=== PATIENT | male | born 1970 | race American Indian/Alaskan Native ===

== ENCOUNTER 2020-12-04 16:00 | Outpatient (RCR) | payer OTHER, SELFPAY ==
--- NOTE | 2020-09-11 18:01 | PT.OIE ---
Current Diagnoses Pain in right shoulder (09/11/20) Stiffness of right shoulder, not elsewhere classified (09/11/20) Abnormal posture (09/11/20) Weakness (09/11/20) Visit Care Team Role Provider Type Terrell Torres PA-C Family Provider Non-Staff Specialty: Medical Address: [address] [place], [address] Email: [email or web address] Capo Fragoso PA-C Attending Provider Non-Staff Primary Care Provider Referring Provider Specialty: Medical Address: [address] [place] [address], [id number] Email: Physical Therapy Initial Evaluation PT-OP-A Visit Information Start: 09/10/20 17:51 Freq: Status: Active Protocol: Document 09/11/20 15:53 [facility] (Rec: 09/11/20 16:49 [facility] [id number]) Out-Patient Physical Therapy Visit Information Visit Information Visit Type Initial Evaluation Visit Start Time 15:57 Visit Stop Time 17:00 Total Visit Minutes 63 Visit Number 1 Number of AUTOMATION AND CONTROL ENGINEER Visits 0 PT-OP-B Current Condition Start: 09/10/20 17:51 Freq: Status: Active Protocol: Document 09/11/20 15:53 [facility] (Rec: 09/11/20 16:49 [facility] [id number]) Current Condition History of Current Condition Onset Date 2 months ago Current Complaints R shoulder pain History of Current Condition Pt reports he working out and doing kettle villanueva squat lifts and started getting sharp pains after. After break, pain started. Pt notes he has started doing pullys and some stretches he found online including elastic bands but it is not helping. Pt reports he injured his R shoulder when doing self defense training but PT helped 4 years ago. Bumping into someone hurts him . Pt also does ab roller. Notes he did not do much stretching before lifting. Prior Treatments and Tests PT helped in past, estim and heat Treatment Goals Patient/Caregiver Goals get back to weight lifting without pain, be able to sleep on it and not lose sleep PT-OP-C Subjective Start: 09/10/20 17:51 Freq: Status: Active Protocol: Document 09/11/20 15:53 [facility] (Rec: 09/11/20 16:49 [facility] [id number]) OP-PT Pain Assessment Location R shoulder Pain Location Details ant lat shoulder and brachium Intensity 6 Scale Used Numeric (0 - 10) Description Tightness,With Movement Description- Other pinching Frequency Intermittent Other Pain Aggravating Factors laying on it,reaching overhead , bump into it, slat pickler at angle,reach behind Pain Alleviating Factors Exercise Other Pain Alleviating Factors stretching PT-OP-F Manual Assessment Start: 09/10/20 17:51 Freq: Status: Active Protocol: Document 09/11/20 15:53 [facility] (Rec: 09/11/20 16:49 [facility] [id number]) Manual Assessments Soft Tissue Assessment Soft Tissue Mobility Assessment R UT, pec, biceps tightness Joint Mobility Assessment Joint Mobility Assessment R 1st rib elevated PT-OP-J Posture/Palpation/Skin Start: 09/10/20 17:51 Freq: Status: Active Protocol: Document 09/11/20 15:53 [facility] (Rec: 09/11/20 16:49 [facility] [id number]) Posture Evaluation [facility] Postural Classification System [facility] Postural Classifications Posterior/Posterior Elbow Flexion Test 2 Comments Posture Comments humerus ant in GH joint, mild kyphosis & fwd head PT-OP-K Range of Motion Start: 09/10/20 17:51 Freq: Status: Active Protocol: Document 09/11/20 15:53 [facility] (Rec: 09/11/20 16:49 [facility] [id number]) Shoulder Goniometric Range of Motion Shoulder Left Active Flexion 160 Extension 64 Abduction 177 External Rotation at 0 degrees Abduction 54 Internal Rotation Behind Back (text) T5 Right Active Testing Position Standing Flexion 110 Extension 43 Abduction 101 External Rotation at 0 degrees Abduction 19 Internal Rotation Behind Back (text) R buttocks PT-OP-L Special Tests Start: 09/10/20 17:51 Freq: Status: Active Protocol: Document 09/11/20 15:53 [facility] (Rec: 09/11/20 16:49 [facility] [id number]) Special Tests Shoulder Special Tests Yergason's Biceps Test Results neg R Sulcus Test Results neg R Speed's Biceps Test Results positve R Burns Raffy Impingement Test Results positive R Drop Arm Rotator Cuff Test Results neg R Neer Impingement Test Results positive R [place] Test Test Results neg R AC Joint Compression Test Results neg R PT-OP-M Strength Start: 09/10/20 17:51 Freq: Status: Active Protocol: Document 09/11/20 15:53 [facility] (Rec: 09/11/20 16:49 [facility] [id number]) Shoulder Strength Shoulder Manual Muscle Testing Right Flexion 3+ Fair+ Extension 3+ Fair+ Abduction (C5) 2+ Poor+ External Rotation 3+ Fair+ Internal Rotation 4- Good- Left Flexion 5 Normal Extension 5 Normal Abduction (C5) 5 Normal External Rotation 5 Normal Internal Rotation 5 Normal PT-OP-Q Treatments Start: 09/10/20 17:51 Freq: Status: Active Protocol: Document 09/11/20 15:53 [facility] (Rec: 09/11/20 18:01 [facility] [id number]) Therapeutic Exercises Supine Exercises foam roll Supine Exercise Name habd Side bilateral Reps/Minutes 10 Sitting Exercises pully Sitting Exercise Name flex Side right Reps/Minutes 5 Comments focus on no elevation of scap Standing Exercises wall crawl Standing Exercise Name focus on no elevation of scap Side right Reps/Minutes 4 ext Side bilateral Equipment Used L1 Reps/Minutes 2x8 Comments focus on posture & scap movement IR Side right Equipment Used L3 Reps/Minutes 10 Comments focus on posture & scap movement ER Standing Exercise Name towel at elbow Side right Equipment Used L1 Reps/Minutes 10 Comments focus on posture & scap movement Self-Care/Home Management Treatment Education Other Education edu re: impingement & shoulder joint mechancis PT-OP-R Modalities Start: 09/10/20 17:51 Freq: Status: Active Protocol: Document 09/11/20 15:53 [facility] (Rec: 09/11/20 18:01 [facility] [id number]) Electric Stimulation Electric Stimulation Interferential Current (IFC) Body Location R shoulder Duration (Minutes) 15 Contraction Type Normal Patient Position Supine Combined With Heat/Cold Hot Pack PT-OP-T Assessment and Plan Start: 09/10/20 17:51 Freq: Status: Active Protocol: Document 09/11/20 15:53 [facility] (Rec: 09/11/20 16:49 [facility] [id number]) Physical Therapy Assessment Rehab Potential Rehabilitation Potential Good Evaluation Complexity Number of Personal Factors/Comorbidities 1-2 Number of Body Systems Impaired 4 or More Clinical Presentation at Evaluation Stable Impairments Impairments Activity Tolerance,Functional Activities,Functional Mobility ,Pain,Posture,ROM,Soft Tissue Mobility,Strength Goals activities Short Term Goal (STG) Pt will be able to sleep without inc pain. STG Duration 10/22/20 Printing Machine Mechanic Goal (LTG) Pt will be able to return to all weight lifting without inc pain. LTG Duration 11/11/20 strength Short Term Goal (STG) Pt will be indep with HEP STG Duration 10/11/20 Printing Machine Mechanic Goal (LTG) Pt will score 5/5 RUE strength and 5/5 EFT to show improved stability and allow him to do typical lifting activities without pain. LTG Duration 11/11/20 ROM Short Term Goal (STG) Pt will have active R flex and abd to 130 deg. STG Duration 10/11/20 Printing Machine Mechanic Goal (LTG) Pt will have full AROM in all planes for R shoulder to allow him to do all ADLs without inc pain. LTG Duration 11/11/20 Assessment Summary Assessment Pt presents with R shoulder pain consistant with impingement and demonstrates poor scapulohumeral and scapulothoracic mechanics, which likely have created this issue. he has dec R shoulder ROM, strength and impaired functional ability d/t pain and stiffness of joint. D/t postural positioning of humerus, pt likely has excessive pressure on ant joint capsule. Pt woudl benefit from skilled PT to address these mechanical impairments in order to improve pain and return function with neuromuscular facilitation & training of appropriate motor control patterns. Physical Therapy Plan Frequency and Duration Frequency of Treatment 1-2x/week Duration of Treatment 2 months Plan of Care Start Date 09/11/20 Plan of Care End Date 11/11/20 Therapeutic Interventions Therapeutic Interventions Aquatic Therapy,Home Exercise Program,Joint Mobilizations, Manual Therapy,Neuromuscular Re-education,Patient/Caregiver Education,Self-Care/Home Management,Soft Tissue Mobilization,Taping, Therapeutic Activities, Therapeutic Exercises Modalities Cold Pack/Ice Massage,Electric Stimulation,Hot Packs, Infrared Therapy,Iontophoresis ,Ultrasound Next Visit Focus/Plan Next Note Type Treatment Note Next Visit Plan review exercises, STM to pecs, biceps, UT, joint mobs to GH & AC joints
--- NOTE | 2020-09-11 18:01 | PT.OPPOC ---
Physical, Occupational & Speech Therapy At [facility] Current Diagnoses Pain in right shoulder (09/11/20) Stiffness of right shoulder, not elsewhere classified (09/11/20) Abnormal posture (09/11/20) Weakness (09/11/20) Visit Care Team Role Provider Type Terrell Torres PA-C Family Provider Non-Staff Specialty: Medical Address: [address] [place] [address], [id number] Email: [email or web address] Capo Fragoso PA-C Attending Provider Non-Staff Primary Care Provider Referring Provider Specialty: Medical Address: [address] [place] [address], [id number] Email: Plan Of Care PT-OP-T Assessment and Plan Start: 09/10/20 17:51 Freq: Status: Active Protocol: Document 09/11/20 15:53 [facility] (Rec: 09/11/20 16:49 [facility] [id number]) Physical Therapy Assessment Rehab Potential Rehabilitation Potential Good Evaluation Complexity Number of Personal Factors/Comorbidities 1-2 Number of Body Systems Impaired 4 or More Clinical Presentation at Evaluation Stable Impairments Impairments Activity Tolerance,Functional Activities,Functional Mobility ,Pain,Posture,ROM,Soft Tissue Mobility,Strength Goals activities Short Term Goal (STG) Pt will be able to sleep without inc pain. STG Duration 10/22/20 Hvac Mechanic Goal (LTG) Pt will be able to return to all weight lifting without inc pain. LTG Duration 11/11/20 strength Short Term Goal (STG) Pt will be indep with HEP STG Duration 10/11/20 Hvac Mechanic Goal (LTG) Pt will score 5/5 RUE strength and 5/5 EFT to show improved stability and allow him to do typical lifting activities without pain. LTG Duration 11/11/20 ROM Short Term Goal (STG) Pt will have active R flex and abd to 130 deg. STG Duration 10/11/20 Halfway Goal (LTG) Pt will have full AROM in all planes for R shoulder to allow him to do all ADLs without inc pain. LTG Duration 11/11/20 Assessment Summary Assessment Pt presents with R shoulder pain consistant with impingement and demonstrates poor scapulohumeral and scapulothoracic mechanics, which likely have created this issue. he has dec R shoulder ROM, strength and impaired functional ability d/t pain and stiffness of joint. D/t postural positioning of humerus, pt likely has excessive pressure on ant joint capsule. Pt woudl benefit from skilled PT to address these mechanical impairments in order to improve pain and return function with neuromuscular facilitation & training of appropriate motor control patterns. Physical Therapy Plan Frequency and Duration Frequency of Treatment 1-2x/week Duration of Treatment 2 months Plan of Care Start Date 09/11/20 Plan of Care End Date 11/11/20 Therapeutic Interventions Therapeutic Interventions Aquatic Therapy,Home Exercise Program,Joint Mobilizations, Manual Therapy,Neuromuscular Re-education,Patient/Caregiver Education,Self-Care/Home Management,Soft Tissue Mobilization,Taping, Therapeutic Activities, Therapeutic Exercises Modalities Cold Pack/Ice Massage,Electric Stimulation,Hot Packs, Infrared Therapy,Iontophoresis ,Ultrasound Next Visit Focus/Plan Next Note Type Treatment Note Next Visit Plan review exercises, STM to pecs, biceps, UT, joint mobs to GH & AC joints Plan of Care Dates Plan of Care Start Date 09/11/20 Plan of Care End Date 11/11/20 Electronically Signed by: Martha Parker, PT 09/11/20 0870 Please Sign and Return: I have reviewed this Plan of Care and certify that the skilled therapy services above are required to meet the patient?s needs. Physician Signature Date Printed Name and Credentials Clinical Instructor Signature Printed Name and Credentials
--- NOTE | 2020-09-18 18:05 | PT.OTN ---
Current Diagnoses Pain in right shoulder (09/18/20) Stiffness of right shoulder, not elsewhere classified (09/18/20) Abnormal posture (09/18/20) Weakness (09/18/20) Physical Therapy Treatment Note PT-OP-A Visit Information Start: 09/10/20 17:51 Freq: Status: Active Protocol: Document 09/18/20 18:02 [facility] (Rec: 09/18/20 18:05 [facility] [id number]) Out-Patient Physical Therapy Visit Information Visit Information Visit Type Treatment Note Visit Start Time 16:05 Visit Stop Time 17:00 Total Visit Minutes 55 Visit Number 2 Number of SCREEN PRINTER Visits 0 PT-OP-B Current Condition Start: 09/10/20 17:51 Freq: Status: Active Protocol: Document 09/11/20 15:53 [facility] (Rec: 09/11/20 16:49 [facility] [id number]) Current Condition History of Current Condition Onset Date 2 months ago Current Complaints R shoulder pain History of Current Condition Pt reports he working out and doing kettle villanueva squat lifts and started getting sharp pains after. After break, pain started. Pt notes he has started doing pullys and some stretches he found online including elastic bands but it is not helping. Pt reports he injured his R shoulder when doing self defense training but PT helped 4 years ago. Bumping into someone hurts him . Pt also does ab roller. Notes he did not do much stretching before lifting. Prior Treatments and Tests PT helped in past, estim and heat Treatment Goals Patient/Caregiver Goals get back to weight lifting without pain, be able to sleep on it and not lose sleep PT-OP-C Subjective Start: 09/10/20 17:51 Freq: Status: Active Protocol: Document 09/18/20 18:02 [facility] (Rec: 09/18/20 18:05 [facility] [id number]) OP-PT Subjective Patient Comments Patient Comments Pt reports compliance w/ exercises PT-OP-F Manual Assessment Start: 09/10/20 17:51 Freq: Status: Active Protocol: Document 09/11/20 15:53 [facility] (Rec: 09/11/20 16:49 [facility] [id number]) Manual Assessments Soft Tissue Assessment Soft Tissue Mobility Assessment R UT, pec, biceps tightness Joint Mobility Assessment Joint Mobility Assessment R 1st rib elevated PT-OP-J Posture/Palpation/Skin Start: 09/10/20 17:51 Freq: Status: Active Protocol: Document 09/11/20 15:53 [facility] (Rec: 09/11/20 16:49 [facility] [id number]) Posture Evaluation [facility] Postural Classification System [facility] Postural Classifications Posterior/Posterior Elbow Flexion Test 2 Comments Posture Comments humerus ant in GH joint, mild kyphosis & fwd head PT-OP-K Range of Motion Start: 09/10/20 17:51 Freq: Status: Active Protocol: Document 09/11/20 15:53 [facility] (Rec: 09/11/20 16:49 [facility] [id number]) Shoulder Goniometric Range of Motion Shoulder Left Active Flexion 160 Extension 64 Abduction 177 External Rotation at 0 degrees Abduction 54 Internal Rotation Behind Back (text) T5 Right Active Testing Position Standing Flexion 110 Extension 43 Abduction 101 External Rotation at 0 degrees Abduction 19 Internal Rotation Behind Back (text) R buttocks PT-OP-L Special Tests Start: 09/10/20 17:51 Freq: Status: Active Protocol: Document 09/11/20 15:53 [facility] (Rec: 09/11/20 16:49 [facility] [id number]) Special Tests Shoulder Special Tests Yergason's Biceps Test Results neg R Sulcus Test Results neg R Speed's Biceps Test Results positve R Burns Rfafy Impingement Test Results positive R Drop Arm Rotator Cuff Test Results neg R Neer Impingement Test Results positive R [place] Test Test Results neg R AC Joint Compression Test Results neg R PT-OP-M Strength Start: 09/10/20 17:51 Freq: Status: Active Protocol: Document 09/11/20 15:53 [facility] (Rec: 09/11/20 16:49 [facility] [id number]) Shoulder Strength Shoulder Manual Muscle Testing Right Flexion 3+ Fair+ Extension 3+ Fair+ Abduction (C5) 2+ Poor+ External Rotation 3+ Fair+ Internal Rotation 4- Good- Left Flexion 5 Normal Extension 5 Normal Abduction (C5) 5 Normal External Rotation 5 Normal Internal Rotation 5 Normal PT-OP-Q Treatments Start: 09/10/20 17:51 Freq: Status: Active Protocol: Document 09/18/20 18:02 [facility] (Rec: 09/18/20 18:05 [facility] [id number]) Manual Therapy Treatment Soft Tissue Mobilization subscap Body Location R Mobilization Type Sustained Pressure Intensity/Depth Moderate Body Position Supine pec Body Location R Mobilization Type Rolling,Strumming Intensity/Depth Moderate Body Position Supine Joint Mobilizations GH Joint r Direction post, inf & distraction & lat gapping FM SC Joint R Direction inf FM AC Joint R Direction gapping FM PT-OP-R Modalities Start: 09/10/20 17:51 Freq: Status: Active Protocol: Document 09/18/20 18:02 [facility] (Rec: 09/18/20 18:05 [facility] [id number]) Electric Stimulation Electric Stimulation Interferential Current (IFC) Body Location R shoulder Duration (Minutes) 15 Contraction Type Normal Patient Position Supine Combined With Heat/Cold Hot Pack PT-OP-T Assessment and Plan Start: 09/10/20 17:51 Freq: Status: Active Protocol: Document 09/18/20 18:02 [facility] (Rec: 09/18/20 18:05 [facility] [id number]) Physical Therapy Assessment Goals activities Short Term Goal (STG) Pt will be able to sleep without inc pain. STG Duration 10/22/20 Penitentiary Goal (LTG) Pt will be able to return to all weight lifting without inc pain. LTG Duration 11/11/20 strength Short Term Goal (STG) Pt will be indep with HEP STG Duration 10/11/20 Maintenance Shop Manager Goal (LTG) Pt will score 5/5 RUE strength and 5/5 EFT to show improved stability and allow him to do typical lifting activities without pain. LTG Duration 11/11/20 ROM Short Term Goal (STG) Pt will have active R flex and abd to 130 deg. STG Duration 10/11/20 Penitentiary Goal (LTG) Pt will have full AROM in all planes for R shoulder to allow him to do all ADLs without inc pain. LTG Duration 11/11/20 Assessment Summary Assessment Based on PROM today, it appears like pt may have symptoms associated with adhesive capsulitis. He had signfiicant lack of joint mobility into post, lat gapping and inf glides with some improvement with manual treatment. Signficiant pec, subscap and tightness surrounding shoulder likely contribute to this tightness. Physical Therapy Plan Frequency and Duration Frequency of Treatment 1-2x/week Duration of Treatment 2 months Plan of Care Start Date 09/11/20 Plan of Care End Date 11/11/20 Next Visit Focus/Plan Next Note Type Treatment Note Next Visit Plan review exercises, STM to pecs, biceps, UT, joint mobs to GH & AC joints
--- NOTE | 2020-09-20 16:25 | PT.OTN ---
Current Diagnoses Pain in right shoulder (09/20/20) Stiffness of right shoulder, not elsewhere classified (09/20/20) Abnormal posture (09/20/20) Weakness (09/20/20) Physical Therapy Treatment Note PT-OP-A Visit Information Start: 09/10/20 17:51 Freq: Status: Active Protocol: Document 09/20/20 15:21 MA (Rec: 09/20/20 16:25 MA [id number]) Out-Patient Physical Therapy Visit Information Visit Information Visit Type Treatment Note Visit Start Time 15:15 Visit Number 3 Number of NUMERICAL CONTROL NESTING OPERATOR Visits 1 PT-OP-B Current Condition Start: 09/10/20 17:51 Freq: Status: Active Protocol: Document 09/11/20 15:53 LR (Rec: 09/11/20 16:49 [facility] [id number]) Current Condition History of Current Condition Onset Date 2 months ago Current Complaints R shoulder pain History of Current Condition Pt reports he working out and doing kettle villanueva squat lifts and started getting sharp pains after. After break, pain started. Pt notes he has started doing pullys and some stretches he found online including elastic bands but it is not helping. Pt reports he injured his R shoulder when doing self defense training but PT helped 4 years ago. Bumping into someone hurts him . Pt also does ab roller. Notes he did not do much stretching before lifting. Prior Treatments and Tests PT helped in past, estim and heat Treatment Goals Patient/Caregiver Goals get back to weight lifting without pain, be able to sleep on it and not lose sleep PT-OP-C Subjective Start: 09/10/20 17:51 Freq: Status: Active Protocol: Document 09/20/20 15:21 MA (Rec: 09/20/20 16:25 MA [id number]) OP-PT Subjective Patient Comments Patient Comments Pt reports only time he has pain is when he rolls on his R side. Bought a NMES unit for home and pulleys for his doorway PT-OP-F Manual Assessment Start: 09/10/20 17:51 Freq: Status: Active Protocol: Document 09/11/20 15:53 [facility] (Rec: 09/11/20 16:49 [facility] [id number]) Manual Assessments Soft Tissue Assessment Soft Tissue Mobility Assessment R UT, pec, biceps tightness Joint Mobility Assessment Joint Mobility Assessment R 1st rib elevated PT-OP-J Posture/Palpation/Skin Start: 09/10/20 17:51 Freq: Status: Active Protocol: Document 09/11/20 15:53 [facility] (Rec: 09/11/20 16:49 [facility] [id number]) Posture Evaluation [facility] Postural Classification System [facility] Postural Classifications Posterior/Posterior Elbow Flexion Test 2 Comments Posture Comments humerus ant in GH joint, mild kyphosis & fwd head PT-OP-K Range of Motion Start: 09/10/20 17:51 Freq: Status: Active Protocol: Document 09/11/20 15:53 [facility] (Rec: 09/11/20 16:49 [facility] [id number]) Shoulder Goniometric Range of Motion Shoulder Left Active Flexion 160 Extension 64 Abduction 177 External Rotation at 0 degrees Abduction 54 Internal Rotation Behind Back (text) T5 Right Active Testing Position Standing Flexion 110 Extension 43 Abduction 101 External Rotation at 0 degrees Abduction 19 Internal Rotation Behind Back (text) R buttocks PT-OP-L Special Tests Start: 09/10/20 17:51 Freq: Status: Active Protocol: Document 09/11/20 15:53 [facility] (Rec: 09/11/20 16:49 [facility] [id number]) Special Tests Shoulder Special Tests Yergason's Biceps Test Results neg R Sulcus Test Results neg R Speed's Biceps Test Results positve R Burns Raffy Impingement Test Results positive R Drop Arm Rotator Cuff Test Results neg R Neer Impingement Test Results positive R Mckinley Test Test Results neg R AC Joint Compression Test Results neg R PT-OP-M Strength Start: 09/10/20 17:51 Freq: Status: Active Protocol: Document 09/11/20 15:53 [facility] (Rec: 09/11/20 16:49 [facility] [id number]) Shoulder Strength Shoulder Manual Muscle Testing Right Flexion 3+ Fair+ Extension 3+ Fair+ Abduction (C5) 2+ Poor+ External Rotation 3+ Fair+ Internal Rotation 4- Good- Left Flexion 5 Normal Extension 5 Normal Abduction (C5) 5 Normal External Rotation 5 Normal Internal Rotation 5 Normal PT-OP-Q Treatments Start: 09/10/20 17:51 Freq: Status: Active Protocol: Document 09/20/20 15:21 MA (Rec: 09/20/20 16:25 MA [id number]) Cardio Equipment Upper Body Ergometer (UBE) Duration (Minutes) 8 Seat Position 12 Height 3 Other 2 min forward/backward Therapeutic Exercises Supine Exercises foam roll Supine Exercise Name habd Side bilateral Reps/Minutes 10 Comments Single HAbd and double HAbd/ hug Sitting Exercises pully Sitting Exercise Name flex/Abd Side bilateral Reps/Minutes 5 Comments focus on no elevation of scap Standing Exercises Horizontal ABD Standing Exercise Name stretch Side right Reps/Minutes 2x60 sec Comments performed infront of mirror to avoid shd elevation ext Side bilateral Equipment Used L1 Reps/Minutes 2x12 Comments focus on posture & scap movement IR Side right Equipment Used L2 Reps/Minutes 10 Comments focus on posture & scap movement ER Standing Exercise Name towel at elbow Side right Equipment Used L1 Reps/Minutes 10 Comments focus on posture & scap movement Manual Therapy Treatment Soft Tissue Mobilization Supraspinatus Body Location R Shd Mobilization Type Myofascial Release,Sustained Pressure,Trigger Point Release Intensity/Depth Moderate Body Position Supine pec Body Location R Mobilization Type Rolling,Strumming Intensity/Depth Moderate Body Position Supine Joint Mobilizations GH Joint R Direction Inferior Grade II Body Position Sitting Reps/Duration 3 minutes Comments Active IR/ER PT-OP-R Modalities Start: 09/10/20 17:51 Freq: Status: Active Protocol: Document 09/20/20 15:21 MA (Rec: 09/20/20 16:25 MA [id number]) Electric Stimulation Electric Stimulation Interferential Current (IFC) Body Location R shoulder Duration (Minutes) 15 Intensity 9 Contraction Type Normal Patient Position Supine Combined With Heat/Cold Hot Pack PT-OP-T Assessment and Plan Start: 09/10/20 17:51 Freq: Status: Active Protocol: Document 09/20/20 15:21 MA (Rec: 09/20/20 16:25 MA [id number]) Physical Therapy Assessment Goals activities Short Term Goal (STG) Pt will be able to sleep without inc pain. STG Duration 10/22/20 Engineering Drawings Checker Goal (LTG) Pt will be able to return to all weight lifting without inc pain. LTG Duration 11/11/20 strength Short Term Goal (STG) Pt will be indep with HEP STG Duration 10/11/20 Fpc Goal (LTG) Pt will score 5/5 RUE strength and 5/5 EFT to show improved stability and allow him to do typical lifting activities without pain. LTG Duration 11/11/20 ROM Short Term Goal (STG) Pt will have active R flex and abd to 130 deg. STG Duration 10/11/20 Fpc Goal (LTG) Pt will have full AROM in all planes for R shoulder to allow him to do all ADLs without inc pain. LTG Duration 11/11/20 Assessment Summary Assessment Pt continues to have decreased R shd ROM during flex/ABD/ER. STM to pecs and supraspinatus due to sore spot complaints . Pt is doing HEP at home-has bought pulleys, foam roller and TENS unit for home. Pt needs cues to avoid shd elevation throughout exercises . Had pt perform some stretches/exercises in mirror for proper form. Physical Therapy Plan Frequency and Duration Frequency of Treatment 1-2x/week Duration of Treatment 2 months Plan of Care Start Date 09/11/20 Plan of Care End Date 11/11/20 Therapeutic Interventions Therapeutic Interventions Aquatic Therapy,Home Exercise Program,Joint Mobilizations, Manual Therapy,Neuromuscular Re-education,Patient/Caregiver Education,Self-Care/Home Management,Soft Tissue Mobilization,Taping, Therapeutic Activities, Therapeutic Exercises Modalities Cold Pack/Ice Massage,Electric Stimulation,Hot Packs, Infrared Therapy,Iontophoresis ,Ultrasound Next Visit Focus/Plan Next Note Type Treatment Note Next Visit Plan review exercises & foam roller stretches, STM to pecs, biceps, UT, joint mobs to GH & AC joints
--- NOTE | 2020-09-24 15:20 | PT.OTN ---
Current Diagnoses Pain in right shoulder (09/24/20) Stiffness of right shoulder, not elsewhere classified (09/24/20) Abnormal posture (09/24/20) Weakness (09/24/20) Physical Therapy Treatment Note PT-OP-A Visit Information Start: 09/10/20 17:51 Freq: Status: Active Protocol: Document 09/24/20 13:49 [facility] (Rec: 09/24/20 15:20 [facility] [id number]) Out-Patient Physical Therapy Visit Information Visit Information Visit Type Treatment Note Visit Start Time 13:49 Visit Stop Time 14:45 Total Visit Minutes 56 Visit Number 4 Number of NEWS EDITOR Visits 0 PT-OP-B Current Condition Start: 09/10/20 17:51 Freq: Status: Active Protocol: Document 09/11/20 15:53 [facility] (Rec: 09/11/20 16:49 [facility] [id number]) Current Condition History of Current Condition Onset Date 2 months ago Current Complaints R shoulder pain History of Current Condition Pt reports he working out and doing kettle villanueva squat lifts and started getting sharp pains after. After break, pain started. Pt notes he has started doing pullys and some stretches he found online including elastic bands but it is not helping. Pt reports he injured his R shoulder when doing self defense training but PT helped 4 years ago. Bumping into someone hurts him . Pt also does ab roller. Notes he did not do much stretching before lifting. Prior Treatments and Tests PT helped in past, estim and heat Treatment Goals Patient/Caregiver Goals get back to weight lifting without pain, be able to sleep on it and not lose sleep PT-OP-C Subjective Start: 09/10/20 17:51 Freq: Status: Active Protocol: Document 09/24/20 13:49 [facility] (Rec: 09/24/20 15:20 [facility] [id number]) OP-PT Subjective Patient Comments Patient Comments Pt reports he accidently banged his shoulder real hard but didn't have a lot of pain like before. Compliance with HEP. Reports find a hot pack wrap at home to use too Patient Reported Progress Improving PT-OP-F Manual Assessment Start: 09/10/20 17:51 Freq: Status: Active Protocol: Document 09/11/20 15:53 [facility] (Rec: 09/11/20 16:49 [facility] [id number]) Manual Assessments Soft Tissue Assessment Soft Tissue Mobility Assessment R UT, pec, biceps tightness Joint Mobility Assessment Joint Mobility Assessment R 1st rib elevated PT-OP-J Posture/Palpation/Skin Start: 09/10/20 17:51 Freq: Status: Active Protocol: Document 09/11/20 15:53 [facility] (Rec: 09/11/20 16:49 [facility] [id number]) Posture Evaluation [facility] Postural Classification System [facility] Postural Classifications Posterior/Posterior Elbow Flexion Test 2 Comments Posture Comments humerus ant in GH joint, mild kyphosis & fwd head PT-OP-K Range of Motion Start: 09/10/20 17:51 Freq: Status: Active Protocol: Document 09/11/20 15:53 [facility] (Rec: 09/11/20 16:49 [facility] [id number]) Shoulder Goniometric Range of Motion Shoulder Left Active Flexion 160 Extension 64 Abduction 177 External Rotation at 0 degrees Abduction 54 Internal Rotation Behind Back (text) T5 Right Active Testing Position Standing Flexion 110 Extension 43 Abduction 101 External Rotation at 0 degrees Abduction 19 Internal Rotation Behind Back (text) R buttocks PT-OP-L Special Tests Start: 09/10/20 17:51 Freq: Status: Active Protocol: Document 09/11/20 15:53 [facility] (Rec: 09/11/20 16:49 [facility] [id number]) Special Tests Shoulder Special Tests Yergason's Biceps Test Results neg R Sulcus Test Results neg R Speed's Biceps Test Results positve R Burns Raffy Impingement Test Results positive R Drop Arm Rotator Cuff Test Results neg R Neer Impingement Test Results positive R [place] Test Test Results neg R AC Joint Compression Test Results neg R PT-OP-M Strength Start: 09/10/20 17:51 Freq: Status: Active Protocol: Document 09/11/20 15:53 [facility] (Rec: 09/11/20 16:49 [facility] [id number]) Shoulder Strength Shoulder Manual Muscle Testing Right Flexion 3+ Fair+ Extension 3+ Fair+ Abduction (C5) 2+ Poor+ External Rotation 3+ Fair+ Internal Rotation 4- Good- Left Flexion 5 Normal Extension 5 Normal Abduction (C5) 5 Normal External Rotation 5 Normal Internal Rotation 5 Normal PT-OP-Q Treatments Start: 09/10/20 17:51 Freq: Status: Active Protocol: Document 09/24/20 13:49 [facility] (Rec: 09/24/20 15:20 [facility] [id number]) Cardio Equipment Upper Body Ergometer (UBE) Duration (Minutes) 8 Seat Position 12 Height 5 Other 4 min forward/backward Therapeutic Exercises Supine Exercises foam roll Supine Exercise Name habd &flex & abd Side bilateral Reps/Minutes 5min Sidelying Exercises rotation Sidelying Exercise Name open book Side right Reps/Minutes 10 Standing Exercises Horizontal ABD Standing Exercise Name stretch Side right Reps/Minutes 60 sec Comments performed infront of mirror to avoid shd elevation ext Side bilateral Equipment Used L3 Reps/Minutes 2x12 Comments focus on posture & scap movement IR Side right Equipment Used L2 Reps/Minutes 15 Comments focus on posture & scap movement ER Standing Exercise Name towel at elbow Side right Equipment Used L1 Reps/Minutes 15 Comments focus on posture & scap movement Manual Therapy Treatment Soft Tissue Mobilization UT Body Location R UT, LS, scalenes Mobilization Type Rolling,Sustained Pressure Comments w/post dep pec Body Location R Mobilization Type Rolling,Strumming Intensity/Depth Moderate Body Position Supine Joint Mobilizations AC Joint R Direction gapping FM PT-OP-R Modalities Start: 09/10/20 17:51 Freq: Status: Active Protocol: Document 09/24/20 13:49 [facility] (Rec: 09/24/20 15:20 [facility] [id number]) Electric Stimulation Electric Stimulation Interferential Current (IFC) Body Location R shoulder Duration (Minutes) 15 Contraction Type Normal Patient Position Supine Combined With Heat/Cold Hot Pack PT-OP-T Assessment and Plan Start: 09/10/20 17:51 Freq: Status: Active Protocol: Document 09/24/20 13:49 [facility] (Rec: 09/24/20 15:20 [facility] [id number]) Physical Therapy Assessment Goals activities Short Term Goal (STG) Pt will be able to sleep without inc pain. STG Duration 10/22/20 Manager Environmental Health And Safety Goal (LTG) Pt will be able to return to all weight lifting without inc pain. LTG Duration 11/11/20 strength Short Term Goal (STG) Pt will be indep with HEP STG Duration 10/11/20 Manager Environmental Health And Safety Goal (LTG) Pt will score 5/5 RUE strength and 5/5 EFT to show improved stability and allow him to do typical lifting activities without pain. LTG Duration 11/11/20 ROM Short Term Goal (STG) Pt will have active R flex and abd to 130 deg. STG Duration 10/11/20 [facility] Goal (LTG) Pt will have full AROM in all planes for R shoulder to allow him to do all ADLs without inc pain. LTG Duration 11/11/20 Assessment Summary Assessment Pt did better with exercises today but still did require cuieng for scap retraction and posture during exercises. Able to add further stretching on foam roll and pt educated for comfortable range. Improved scap depression after manual treatment Physical Therapy Plan Frequency and Duration Frequency of Treatment 1-2x/week Duration of Treatment 2 months Plan of Care Start Date 09/11/20 Plan of Care End Date 11/11/20 Next Visit Focus/Plan Next Note Type Treatment Note Next Visit Plan joint mobs and cont to work on scap stability & mobility
--- NOTE | 2020-09-26 15:20 | PT.OTN ---
Current Diagnoses Pain in right shoulder (09/26/20) Stiffness of right shoulder, not elsewhere classified (09/26/20) Abnormal posture (09/26/20) Weakness (09/26/20) Physical Therapy Treatment Note PT-OP-A Visit Information Start: 09/10/20 17:51 Freq: Status: Active Protocol: Document 09/26/20 13:42 [facility] (Rec: 09/26/20 15:20 [facility] [id number]) Out-Patient Physical Therapy Visit Information Visit Information Visit Type Treatment Note Visit Start Time 13:47 Visit Stop Time 14:42 Total Visit Minutes 55 Visit Number 5 Number of FACT CHECKER Visits 0 PT-OP-B Current Condition Start: 09/10/20 17:51 Freq: Status: Active Protocol: Document 09/11/20 15:53 [facility] (Rec: 09/11/20 16:49 [facility] [id number]) Current Condition History of Current Condition Onset Date 2 months ago Current Complaints R shoulder pain History of Current Condition Pt reports he working out and doing kettle villanueva squat lifts and started getting sharp pains after. After break, pain started. Pt notes he has started doing pullys and some stretches he found online including elastic bands but it is not helping. Pt reports he injured his R shoulder when doing self defense training but PT helped 4 years ago. Bumping into someone hurts him . Pt also does ab roller. Notes he did not do much stretching before lifting. Prior Treatments and Tests PT helped in past, estim and heat Treatment Goals Patient/Caregiver Goals get back to weight lifting without pain, be able to sleep on it and not lose sleep PT-OP-C Subjective Start: 09/10/20 17:51 Freq: Status: Active Protocol: Document 09/26/20 13:42 [facility] (Rec: 09/26/20 15:20 [facility] [id number]) OP-PT Subjective Patient Comments Patient Comments Pt reprots some soreness after last session through yesterday but better today. He did his HEP yesterdaya nd stretched PT-OP-F Manual Assessment Start: 09/10/20 17:51 Freq: Status: Active Protocol: Document 09/11/20 15:53 [facility] (Rec: 09/11/20 16:49 [facility] [id number]) Manual Assessments Soft Tissue Assessment Soft Tissue Mobility Assessment R UT, pec, biceps tightness Joint Mobility Assessment Joint Mobility Assessment R 1st rib elevated PT-OP-J Posture/Palpation/Skin Start: 09/10/20 17:51 Freq: Status: Active Protocol: Document 09/11/20 15:53 [facility] (Rec: 09/11/20 16:49 [facility] [id number]) Posture Evaluation [facility] Postural Classification System [facility] Postural Classifications Posterior/Posterior Elbow Flexion Test 2 Comments Posture Comments humerus ant in GH joint, mild kyphosis & fwd head PT-OP-K Range of Motion Start: 09/10/20 17:51 Freq: Status: Active Protocol: Document 09/11/20 15:53 [facility] (Rec: 09/11/20 16:49 [facility] [id number]) Shoulder Goniometric Range of Motion Shoulder Left Active Flexion 160 Extension 64 Abduction 177 External Rotation at 0 degrees Abduction 54 Internal Rotation Behind Back (text) T5 Right Active Testing Position Standing Flexion 110 Extension 43 Abduction 101 External Rotation at 0 degrees Abduction 19 Internal Rotation Behind Back (text) R buttocks PT-OP-L Special Tests Start: 09/10/20 17:51 Freq: Status: Active Protocol: Document 09/11/20 15:53 [facility] (Rec: 09/11/20 16:49 [facility] [id number]) Special Tests Shoulder Special Tests Yergason's Biceps Test Results neg R Sulcus Test Results neg R Speed's Biceps Test Results positve R Burns Raffy Impingement Test Results positive R Drop Arm Rotator Cuff Test Results neg R Neer Impingement Test Results positive R [place] Test Test Results neg R AC Joint Compression Test Results neg R PT-OP-M Strength Start: 09/10/20 17:51 Freq: Status: Active Protocol: Document 09/11/20 15:53 [facility] (Rec: 09/11/20 16:49 [facility] [id number]) Shoulder Strength Shoulder Manual Muscle Testing Right Flexion 3+ Fair+ Extension 3+ Fair+ Abduction (C5) 2+ Poor+ External Rotation 3+ Fair+ Internal Rotation 4- Good- Left Flexion 5 Normal Extension 5 Normal Abduction (C5) 5 Normal External Rotation 5 Normal Internal Rotation 5 Normal PT-OP-Q Treatments Start: 09/10/20 17:51 Freq: Status: Active Protocol: Document 09/26/20 13:42 [facility] (Rec: 09/26/20 15:20 [facility] [id number]) Cardio Equipment Upper Body Ergometer (UBE) Duration (Minutes) 8 Seat Position 12 Height 5 Other 4 min forward/backward Therapeutic Exercises Standing Exercises ext Side bilateral Equipment Used L3 Reps/Minutes 2x12 Comments focus on posture & scap movement IR Side right Equipment Used L2 Reps/Minutes 15 Comments focus on posture & scap movement ER Standing Exercise Name towel at elbow Side right Equipment Used L1 Reps/Minutes 15 Comments focus on posture & scap movement Manual Therapy Treatment Soft Tissue Mobilization lats Body Location R Mobilization Type Myofascial Release,Rolling, Strumming Comments use of plunger & hand UT Body Location R UT, LS, scalenes Mobilization Type Rolling,Sustained Pressure Comments w/post dep Supraspinatus Body Location R Shd Mobilization Type Myofascial Release,Sustained Pressure,Trigger Point Release Intensity/Depth Moderate Body Position Supine subscap Body Location R Mobilization Type Sustained Pressure Intensity/Depth Moderate Body Position Supine pec Body Location R Mobilization Type Rolling,Strumming Intensity/Depth Moderate Body Position Supine Joint Mobilizations scapulothoracic Joint R Direction med glide & tilt & lat glide & tilt GH Joint R Direction distraction Grade III SC Joint R Direction inf FM PT-OP-R Modalities Start: 09/10/20 17:51 Freq: Status: Active Protocol: Document 09/26/20 13:42 [facility] (Rec: 09/26/20 15:20 [facility] [id number]) Electric Stimulation Electric Stimulation Interferential Current (IFC) Body Location R shoulder Duration (Minutes) 15 Contraction Type Normal Patient Position Supine Combined With Heat/Cold Hot Pack PT-OP-T Assessment and Plan Start: 09/10/20 17:51 Freq: Status: Active Protocol: Document 09/26/20 13:42 [facility] (Rec: 09/26/20 15:20 [facility] [id number]) Physical Therapy Assessment Goals activities Short Term Goal (STG) Pt will be able to sleep without inc pain. STG Duration 10/22/20 Db2 Systems Programmer Goal (LTG) Pt will be able to return to all weight lifting without inc pain. LTG Duration 11/11/20 strength Short Term Goal (STG) Pt will be indep with HEP STG Duration 10/11/20 Db2 Systems Programmer Goal (LTG) Pt will score 5/5 RUE strength and 5/5 EFT to show improved stability and allow him to do typical lifting activities without pain. LTG Duration 11/11/20 ROM Short Term Goal (STG) Pt will have active R flex and abd to 130 deg. STG Duration 10/11/20 [facility] Goal (LTG) Pt will have full AROM in all planes for R shoulder to allow him to do all ADLs without inc pain. LTG Duration 11/11/20 Assessment Summary Assessment Pt is doing well with exercises but does still require cueing for scap motion with ext and IR. Improving overhead mobility with mobs and soft tissue but very signficant testing Physical Therapy Plan Frequency and Duration Frequency of Treatment 1-2x/week Duration of Treatment 2 months Plan of Care Start Date 09/11/20 Plan of Care End Date 11/11/20 Next Visit Focus/Plan Next Note Type Treatment Note Next Visit Plan joint mobs and cont to work on scap stability & mobility
--- NOTE | 2020-09-30 14:35 | PT.OTN ---
Current Diagnoses Pain in right shoulder (09/30/20) Stiffness of right shoulder, not elsewhere classified (09/30/20) Abnormal posture (09/30/20) Weakness (09/30/20) Physical Therapy Treatment Note PT-OP-A Visit Information Start: 09/10/20 17:51 Freq: Status: Active Protocol: Document 09/30/20 13:46 MA (Rec: 09/30/20 14:34 MA [id number]) Out-Patient Physical Therapy Visit Information Visit Information Visit Type Treatment Note Visit Start Time 13:44 Visit Stop Time 14:28 Total Visit Minutes 44 Visit Number 6 Number of CITY MANAGER Visits 1 PT-OP-B Current Condition Start: 09/10/20 17:51 Freq: Status: Active Protocol: Document 09/11/20 15:53 LR (Rec: 09/11/20 16:49 [facility] [id number]) Current Condition History of Current Condition Onset Date 2 months ago Current Complaints R shoulder pain History of Current Condition Pt reports he working out and doing kettle villanueva squat lifts and started getting sharp pains after. After break, pain started. Pt notes he has started doing pullys and some stretches he found online including elastic bands but it is not helping. Pt reports he injured his R shoulder when doing self defense training but PT helped 4 years ago. Bumping into someone hurts him . Pt also does ab roller. Notes he did not do much stretching before lifting. Prior Treatments and Tests PT helped in past, estim and heat Treatment Goals Patient/Caregiver Goals get back to weight lifting without pain, be able to sleep on it and not lose sleep PT-OP-C Subjective Start: 09/10/20 17:51 Freq: Status: Active Protocol: Document 09/30/20 13:46 MA (Rec: 09/30/20 14:34 MA [id number]) OP-PT Subjective Patient Comments Patient Comments Pt reports he has had no pain and has only been doing his HEP exercises/stretches, no weight lifting yet PT-OP-F Manual Assessment Start: 09/10/20 17:51 Freq: Status: Active Protocol: Document 09/11/20 15:53 LR (Rec: 09/11/20 16:49 [facility] [id number]) Manual Assessments Soft Tissue Assessment Soft Tissue Mobility Assessment R UT, pec, biceps tightness Joint Mobility Assessment Joint Mobility Assessment R 1st rib elevated PT-OP-J Posture/Palpation/Skin Start: 09/10/20 17:51 Freq: Status: Active Protocol: Document 09/11/20 15:53 [facility] (Rec: 09/11/20 16:49 [facility] [id number]) Posture Evaluation [facility] Postural Classification System [facility] Postural Classifications Posterior/Posterior Elbow Flexion Test 2 Comments Posture Comments humerus ant in GH joint, mild kyphosis & fwd head PT-OP-K Range of Motion Start: 09/10/20 17:51 Freq: Status: Active Protocol: Document 09/11/20 15:53 [facility] (Rec: 09/11/20 16:49 [facility] [id number]) Shoulder Goniometric Range of Motion Shoulder Left Active Flexion 160 Extension 64 Abduction 177 External Rotation at 0 degrees Abduction 54 Internal Rotation Behind Back (text) T5 Right Active Testing Position Standing Flexion 110 Extension 43 Abduction 101 External Rotation at 0 degrees Abduction 19 Internal Rotation Behind Back (text) R buttocks PT-OP-L Special Tests Start: 09/10/20 17:51 Freq: Status: Active Protocol: Document 09/11/20 15:53 [facility] (Rec: 09/11/20 16:49 [facility] [id number]) Special Tests Shoulder Special Tests Yergason's Biceps Test Results neg R Sulcus Test Results neg R Speed's Biceps Test Results positve R Burns Raffy Impingement Test Results positive R Drop Arm Rotator Cuff Test Results neg R Neer Impingement Test Results positive R [place] Test Test Results neg R AC Joint Compression Test Results neg R PT-OP-M Strength Start: 09/10/20 17:51 Freq: Status: Active Protocol: Document 09/11/20 15:53 [facility] (Rec: 09/11/20 16:49 [facility] [id number]) Shoulder Strength Shoulder Manual Muscle Testing Right Flexion 3+ Fair+ Extension 3+ Fair+ Abduction (C5) 2+ Poor+ External Rotation 3+ Fair+ Internal Rotation 4- Good- Left Flexion 5 Normal Extension 5 Normal Abduction (C5) 5 Normal External Rotation 5 Normal Internal Rotation 5 Normal PT-OP-Q Treatments Start: 09/10/20 17:51 Freq: Status: Active Protocol: Document 09/30/20 13:46 MA (Rec: 09/30/20 14:34 MA [id number]) Cardio Equipment Upper Body Ergometer (UBE) Duration (Minutes) 6 Seat Position 11 Height 5 Other 3 min forward/backward Therapeutic Exercises Sitting Exercises UT stretch Side right Reps/Minutes 30 sec pully Sitting Exercise Name Flex Side bilateral Reps/Minutes 2 minutes Comments Isaac snapped during exercise Standing Exercises Pec Stretch Side bilateral Equipment Used doorway Comments pt only able to feel stretch on L side, R side felt stretch in RC mms ext Side bilateral Equipment Used L3 Reps/Minutes 2x12 Comments focus on posture & scap movement IR Side right Equipment Used L2 Reps/Minutes 2x15 Comments focus on posture & scap movement ER Standing Exercise Name towel at elbow Side right Equipment Used L1 Reps/Minutes 2x15 Comments focus on posture & scap movement Manual Therapy Treatment Soft Tissue Mobilization UT Body Location R UT, LS, scalenes Mobilization Type Rolling,Sustained Pressure Comments w/post dep Supraspinatus Body Location R Shd Mobilization Type Myofascial Release,Sustained Pressure,Trigger Point Release Intensity/Depth Moderate Body Position Supine subscap Body Location R Mobilization Type Sustained Pressure Intensity/Depth Moderate Body Position Supine pec Body Location R Mobilization Type Rolling,Strumming Intensity/Depth Moderate Body Position Supine PT-OP-R Modalities Start: 09/10/20 17:51 Freq: Status: Active Protocol: Document 09/26/20 13:42 [facility] (Rec: 09/26/20 15:20 [facility] [id number]) Electric Stimulation Electric Stimulation Interferential Current (IFC) Body Location R shoulder Duration (Minutes) 15 Contraction Type Normal Patient Position Supine Combined With Heat/Cold Hot Pack PT-OP-T Assessment and Plan Start: 09/10/20 17:51 Freq: Status: Active Protocol: Document 09/30/20 13:46 MA (Rec: 09/30/20 14:34 MA [id number]) Physical Therapy Assessment Goals activities Short Term Goal (STG) Pt will be able to sleep without inc pain. STG Duration 10/22/20 Usp Goal (LTG) Pt will be able to return to all weight lifting without inc pain. LTG Duration 11/11/20 strength Short Term Goal (STG) Pt will be indep with HEP STG Duration 10/11/20 Assistant Boiler Operator Goal (LTG) Pt will score 5/5 RUE strength and 5/5 EFT to show improved stability and allow him to do typical lifting activities without pain. LTG Duration 11/11/20 ROM Short Term Goal (STG) Pt will have active R flex and abd to 130 deg. STG Duration 10/11/20 Assistant Boiler Operator Goal (LTG) Pt will have full AROM in all planes for R shoulder to allow him to do all ADLs without inc pain. LTG Duration 11/11/20 Assessment Summary Assessment Pt is doing better with exercises but requires cues on shd extension to avoid scap elevation. Pt is tender on deltoid mm today and along R pec. Increased ROM during isaac flexion until pully rope snapped and exercise was discontinued Physical Therapy Plan Frequency and Duration Frequency of Treatment 1-2x/week Duration of Treatment 2 months Plan of Care Start Date 09/11/20 Plan of Care End Date 11/11/20 Next Visit Focus/Plan Next Note Type Treatment Note Next Visit Plan joint mobs and cont to work on scap stability & mobility
--- NOTE | 2020-10-02 18:08 | PT.OTN ---
Current Diagnoses Pain in right shoulder (10/02/20) Stiffness of right shoulder, not elsewhere classified (10/02/20) Abnormal posture (10/02/20) Weakness (10/02/20) Physical Therapy Treatment Note PT-OP-A Visit Information Start: 09/10/20 17:51 Freq: Status: Active Protocol: Document 10/02/20 16:56 [facility] (Rec: 10/02/20 18:08 [facility] [id number]) Out-Patient Physical Therapy Visit Information Visit Information Visit Type Treatment Note Visit Start Time 16:51 Visit Stop Time 17:48 Total Visit Minutes 57 Visit Number 7 Number of ASW/ASUW TACTICAL AIR CONTROLLER Visits 0 PT-OP-B Current Condition Start: 09/10/20 17:51 Freq: Status: Active Protocol: Document 09/11/20 15:53 [facility] (Rec: 09/11/20 16:49 [facility] [id number]) Current Condition History of Current Condition Onset Date 2 months ago Current Complaints R shoulder pain History of Current Condition Pt reports he working out and doing kettle villanueva squat lifts and started getting sharp pains after. After break, pain started. Pt notes he has started doing pullys and some stretches he found online including elastic bands but it is not helping. Pt reports he injured his R shoulder when doing self defense training but PT helped 4 years ago. Bumping into someone hurts him . Pt also does ab roller. Notes he did not do much stretching before lifting. Prior Treatments and Tests PT helped in past, estim and heat Treatment Goals Patient/Caregiver Goals get back to weight lifting without pain, be able to sleep on it and not lose sleep PT-OP-C Subjective Start: 09/10/20 17:51 Freq: Status: Active Protocol: Document 10/02/20 16:56 [facility] (Rec: 10/02/20 18:08 [facility] [id number]) OP-PT Subjective Patient Comments Patient Comments Pt doing exercises daily and doing a lot of stretching including w/foam roller. Patient Reported Progress Improving PT-OP-F Manual Assessment Start: 09/10/20 17:51 Freq: Status: Active Protocol: Document 09/11/20 15:53 [facility] (Rec: 09/11/20 16:49 [facility] [id number]) Manual Assessments Soft Tissue Assessment Soft Tissue Mobility Assessment R UT, pec, biceps tightness Joint Mobility Assessment Joint Mobility Assessment R 1st rib elevated PT-OP-J Posture/Palpation/Skin Start: 09/10/20 17:51 Freq: Status: Active Protocol: Document 09/11/20 15:53 [facility] (Rec: 09/11/20 16:49 [facility] [id number]) Posture Evaluation [facility] Postural Classification System [facility] Postural Classifications Posterior/Posterior Elbow Flexion Test 2 Comments Posture Comments humerus ant in GH joint, mild kyphosis & fwd head PT-OP-K Range of Motion Start: 09/10/20 17:51 Freq: Status: Active Protocol: Document 09/11/20 15:53 [facility] (Rec: 09/11/20 16:49 [facility] [id number]) Shoulder Goniometric Range of Motion Shoulder Left Active Flexion 160 Extension 64 Abduction 177 External Rotation at 0 degrees Abduction 54 Internal Rotation Behind Back (text) T5 Right Active Testing Position Standing Flexion 110 Extension 43 Abduction 101 External Rotation at 0 degrees Abduction 19 Internal Rotation Behind Back (text) R buttocks PT-OP-L Special Tests Start: 09/10/20 17:51 Freq: Status: Active Protocol: Document 09/11/20 15:53 [facility] (Rec: 09/11/20 16:49 [facility] [id number]) Special Tests Shoulder Special Tests Yergason's Biceps Test Results neg R Sulcus Test Results neg R Speed's Biceps Test Results positve R Burns Raffy Impingement Test Results positive R Drop Arm Rotator Cuff Test Results neg R Neer Impingement Test Results positive R [place] Test Test Results neg R AC Joint Compression Test Results neg R PT-OP-M Strength Start: 09/10/20 17:51 Freq: Status: Active Protocol: Document 09/11/20 15:53 [facility] (Rec: 09/11/20 16:49 [facility] [id number]) Shoulder Strength Shoulder Manual Muscle Testing Right Flexion 3+ Fair+ Extension 3+ Fair+ Abduction (C5) 2+ Poor+ External Rotation 3+ Fair+ Internal Rotation 4- Good- Left Flexion 5 Normal Extension 5 Normal Abduction (C5) 5 Normal External Rotation 5 Normal Internal Rotation 5 Normal PT-OP-Q Treatments Start: 09/10/20 17:51 Freq: Status: Active Protocol: Document 10/02/20 16:56 [facility] (Rec: 10/02/20 18:08 [facility] [id number]) Cardio Equipment Upper Body Ergometer (UBE) Duration (Minutes) 6 Seat Position 11 Height 5.5 Other 3 min forward/backward Therapeutic Exercises Standing Exercises ext Side bilateral Equipment Used L3 Reps/Minutes 12 Comments focus on posture & scap movement IR Side right Equipment Used L2 Reps/Minutes 15 Comments focus on posture & scap movement ER Standing Exercise Name towel at elbow Side right Equipment Used L1 Reps/Minutes 15 Comments focus on posture & scap movement Manual Therapy Treatment Soft Tissue Mobilization UT Body Location R UT, LS, scalenes Mobilization Type Rolling,Sustained Pressure Comments w/post dep pec Body Location R Mobilization Type Rolling,Strumming Intensity/Depth Moderate Body Position Supine Joint Mobilizations scapulothoracic Joint R Direction med glide & tilt & lat glide & tilt GH Joint R Direction distraction, inf & post glides Grade III PT-OP-R Modalities Start: 09/10/20 17:51 Freq: Status: Active Protocol: Document 10/02/20 16:56 [facility] (Rec: 10/02/20 18:08 [facility] [id number]) Electric Stimulation Electric Stimulation Interferential Current (IFC) Body Location R shoulder Duration (Minutes) 15 Contraction Type Normal Patient Position Supine Combined With Heat/Cold Hot Pack PT-OP-T Assessment and Plan Start: 09/10/20 17:51 Freq: Status: Active Protocol: Document 10/02/20 16:56 [facility] (Rec: 10/02/20 18:08 [facility] [id number]) Physical Therapy Assessment Goals activities Short Term Goal (STG) Pt will be able to sleep without inc pain. STG Duration 10/22/20 It Help Desk Analyst Goal (LTG) Pt will be able to return to all weight lifting without inc pain. LTG Duration 11/11/20 strength Short Term Goal (STG) Pt will be indep with HEP STG Duration 10/11/20 It Help Desk Analyst Goal (LTG) Pt will score 5/5 RUE strength and 5/5 EFT to show improved stability and allow him to do typical lifting activities without pain. LTG Duration 11/11/20 ROM Short Term Goal (STG) Pt will have active R flex and abd to 130 deg. STG Duration 10/11/20 Half-Way Goal (LTG) Pt will have full AROM in all planes for R shoulder to allow him to do all ADLs without inc pain. LTG Duration 11/11/20 Assessment Summary Assessment Pt required min cueing for scap motion with IR and was able to do ER with good form but does still require max cueing with shoulder ext to avoid scap elevation. Physical Therapy Plan Frequency and Duration Frequency of Treatment 1-2x/week Duration of Treatment 2 months Plan of Care Start Date 09/11/20 Plan of Care End Date 11/11/20 Next Visit Focus/Plan Next Note Type Treatment Note Next Visit Plan joint mobs and cont to work on scap stability & mobility
--- NOTE | 2020-10-08 15:18 | PT.OTN ---
Current Diagnoses Pain in right shoulder (10/08/20) Stiffness of right shoulder, not elsewhere classified (10/08/20) Abnormal posture (10/08/20) Weakness (10/08/20) Physical Therapy Treatment Note PT-OP-A Visit Information Start: 09/10/20 17:51 Freq: Status: Active Protocol: Document 10/08/20 14:38 [facility] (Rec: 10/08/20 15:18 [facility] [id number]) Out-Patient Physical Therapy Visit Information Visit Information Visit Type Treatment Note Visit Start Time 14:32 Visit Stop Time 15:13 Total Visit Minutes 41 Visit Number 8 Number of SOCIAL SECURITY ASSESSOR Visits 0 PT-OP-B Current Condition Start: 09/10/20 17:51 Freq: Status: Active Protocol: Document 09/11/20 15:53 [facility] (Rec: 09/11/20 16:49 [facility] [id number]) Current Condition History of Current Condition Onset Date 2 months ago Current Complaints R shoulder pain History of Current Condition Pt reports he working out and doing kettle villanueva squat lifts and started getting sharp pains after. After break, pain started. Pt notes he has started doing pullys and some stretches he found online including elastic bands but it is not helping. Pt reports he injured his R shoulder when doing self defense training but PT helped 4 years ago. Bumping into someone hurts him . Pt also does ab roller. Notes he did not do much stretching before lifting. Prior Treatments and Tests PT helped in past, estim and heat Treatment Goals Patient/Caregiver Goals get back to weight lifting without pain, be able to sleep on it and not lose sleep PT-OP-C Subjective Start: 09/10/20 17:51 Freq: Status: Active Protocol: Document 10/08/20 14:38 [facility] (Rec: 10/08/20 15:18 [facility] [id number]) OP-PT Subjective Patient Comments Patient Comments Pt reports neck feels tight today. Aggrevated his shoulde rlast night in his sleep PT-OP-F Manual Assessment Start: 09/10/20 17:51 Freq: Status: Active Protocol: Document 09/11/20 15:53 [facility] (Rec: 09/11/20 16:49 [facility] [id number]) Manual Assessments Soft Tissue Assessment Soft Tissue Mobility Assessment R UT, pec, biceps tightness Joint Mobility Assessment Joint Mobility Assessment R 1st rib elevated PT-OP-J Posture/Palpation/Skin Start: 09/10/20 17:51 Freq: Status: Active Protocol: Document 09/11/20 15:53 [facility] (Rec: 09/11/20 16:49 [facility] [id number]) Posture Evaluation [facility] Postural Classification System [facility] Postural Classifications Posterior/Posterior Elbow Flexion Test 2 Comments Posture Comments humerus ant in GH joint, mild kyphosis & fwd head PT-OP-K Range of Motion Start: 09/10/20 17:51 Freq: Status: Active Protocol: Document 09/11/20 15:53 [facility] (Rec: 09/11/20 16:49 [facility] [id number]) Shoulder Goniometric Range of Motion Shoulder Left Active Flexion 160 Extension 64 Abduction 177 External Rotation at 0 degrees Abduction 54 Internal Rotation Behind Back (text) T5 Right Active Testing Position Standing Flexion 110 Extension 43 Abduction 101 External Rotation at 0 degrees Abduction 19 Internal Rotation Behind Back (text) R buttocks PT-OP-L Special Tests Start: 09/10/20 17:51 Freq: Status: Active Protocol: Document 09/11/20 15:53 [facility] (Rec: 09/11/20 16:49 [facility] [id number]) Special Tests Shoulder Special Tests Yergason's Biceps Test Results neg R Sulcus Test Results neg R Speed's Biceps Test Results positve R Burns Raffy Impingement Test Results positive R Drop Arm Rotator Cuff Test Results neg R Neer Impingement Test Results positive R [place] Test Test Results neg R AC Joint Compression Test Results neg R PT-OP-M Strength Start: 09/10/20 17:51 Freq: Status: Active Protocol: Document 09/11/20 15:53 [facility] (Rec: 09/11/20 16:49 [facility] [id number]) Shoulder Strength Shoulder Manual Muscle Testing Right Flexion 3+ Fair+ Extension 3+ Fair+ Abduction (C5) 2+ Poor+ External Rotation 3+ Fair+ Internal Rotation 4- Good- Left Flexion 5 Normal Extension 5 Normal Abduction (C5) 5 Normal External Rotation 5 Normal Internal Rotation 5 Normal PT-OP-Q Treatments Start: 09/10/20 17:51 Freq: Status: Active Protocol: Document 10/08/20 14:38 [facility] (Rec: 10/08/20 15:18 [facility] [id number]) Cardio Equipment Upper Body Ergometer (UBE) Duration (Minutes) 6 Seat Position 10 Height 6 Other 3 min forward/backward Therapeutic Exercises Sidelying Exercises 1st rib Sidelying Exercise Name self mob Side right Comments w/rolling Standing Exercises ext Side bilateral Equipment Used L1, 2, 3 Reps/Minutes 10 ea Comments focus on posture & scap movement Manual Therapy Treatment Joint Mobilizations ribs Comments 1st rib caudal glide FM in S/L & seated 2nd & 3rd ribs caudal glide FM s/l GH Joint R Direction distraction, inf & post glides Grade III AC Joint R Direction gapping FM PT-OP-R Modalities Start: 09/10/20 17:51 Freq: Status: Active Protocol: Document 10/02/20 16:56 [facility] (Rec: 10/02/20 18:08 [facility] [id number]) Electric Stimulation Electric Stimulation Interferential Current (IFC) Body Location R shoulder Duration (Minutes) 15 Contraction Type Normal Patient Position Supine Combined With Heat/Cold Hot Pack PT-OP-T Assessment and Plan Start: 09/10/20 17:51 Freq: Status: Active Protocol: Document 10/08/20 14:38 [facility] (Rec: 10/08/20 15:18 [facility] [id number]) Physical Therapy Assessment Goals activities Short Term Goal (STG) Pt will be able to sleep without inc pain. STG Duration 10/22/20 Group Home Goal (LTG) Pt will be able to return to all weight lifting without inc pain. LTG Duration 11/11/20 strength Short Term Goal (STG) Pt will be indep with HEP STG Duration 10/11/20 Framing Mechanic Goal (LTG) Pt will score 5/5 RUE strength and 5/5 EFT to show improved stability and allow him to do typical lifting activities without pain. LTG Duration 11/11/20 ROM Short Term Goal (STG) Pt will have active R flex and abd to 130 deg. STG Duration 10/11/20 Group Home Goal (LTG) Pt will have full AROM in all planes for R shoulder to allow him to do all ADLs without inc pain. LTG Duration 11/11/20 Assessment Summary Assessment Pt able to do better when dec resistance with ext exercises. He still required cueing but dec him to L2 at home to focus on form. He improved with PROM flex after GH & AC mobs. Physical Therapy Plan Frequency and Duration Frequency of Treatment 1-2x/week Duration of Treatment 2 months Plan of Care Start Date 09/11/20 Plan of Care End Date 11/11/20 Next Visit Focus/Plan Next Note Type Treatment Note Next Visit Plan joint mobs and cont to work on scap stability & mobility
--- NOTE | 2020-10-21 10:48 | PT-OP ANOTE ---
Pt called and left message re: no show. Pt informed of next scheduled appointment
--- NOTE | 2020-11-06 15:52 | PT-OP ANOTE ---
Pt called re: no show and educated on calling prior to appt if unable to make it. He was informed of next scheduled appointment.
--- NOTE | 2020-11-11 16:05 | PT.OTN ---
Current Diagnoses Pain in right shoulder (11/11/20) Stiffness of right shoulder, not elsewhere classified (11/11/20) Abnormal posture (11/11/20) Weakness (11/11/20) Physical Therapy Treatment Note PT-OP-A Visit Information Start: 09/10/20 17:51 Freq: Status: Active Protocol: Document 11/11/20 15:16 [facility] (Rec: 11/11/20 16:05 [facility] [id number]) Out-Patient Physical Therapy Visit Information Visit Information Visit Type Progress Note Visit Start Time 15:16 Visit Stop Time 16:15 Total Visit Minutes 59 Visit Number 9 Number of HABILITATION SPECIALIST Visits 0 PT-OP-B Current Condition Start: 09/10/20 17:51 Freq: Status: Active Protocol: Document 09/11/20 15:53 [facility] (Rec: 09/11/20 16:49 [facility] [id number]) Current Condition History of Current Condition Onset Date 2 months ago Current Complaints R shoulder pain History of Current Condition Pt reports he working out and doing kettle villanueva squat lifts and started getting sharp pains after. After break, pain started. Pt notes he has started doing pullys and some stretches he found online including elastic bands but it is not helping. Pt reports he injured his R shoulder when doing self defense training but PT helped 4 years ago. Bumping into someone hurts him . Pt also does ab roller. Notes he did not do much stretching before lifting. Prior Treatments and Tests PT helped in past, estim and heat Treatment Goals Patient/Caregiver Goals get back to weight lifting without pain, be able to sleep on it and not lose sleep PT-OP-C Subjective Start: 09/10/20 17:51 Freq: Status: Active Protocol: Document 11/11/20 15:16 [facility] (Rec: 11/11/20 16:05 [facility] [id number]) OP-PT Subjective Patient Comments Patient Comments Pt reports he has been stretching at home. He has been using the roller on the floor too. He is seeing more stretching upward. Patient Reported Progress Improving PT-OP-F Manual Assessment Start: 09/10/20 17:51 Freq: Status: Active Protocol: Document 09/11/20 15:53 [facility] (Rec: 09/11/20 16:49 [facility] [id number]) Manual Assessments Soft Tissue Assessment Soft Tissue Mobility Assessment R UT, pec, biceps tightness Joint Mobility Assessment Joint Mobility Assessment R 1st rib elevated PT-OP-J Posture/Palpation/Skin Start: 09/10/20 17:51 Freq: Status: Active Protocol: Document 09/11/20 15:53 [facility] (Rec: 09/11/20 16:49 [facility] [id number]) Posture Evaluation [facility] Postural Classification System [facility] Postural Classifications Posterior/Posterior Elbow Flexion Test 2 Comments Posture Comments humerus ant in GH joint, mild kyphosis & fwd head PT-OP-K Range of Motion Start: 09/10/20 17:51 Freq: Status: Active Protocol: Document 11/11/20 15:16 [facility] (Rec: 11/11/20 16:05 [facility] [id number]) Shoulder Goniometric Range of Motion Shoulder Right Active Testing Position Standing Flexion 120 Extension 33 Abduction 105 External Rotation at 0 degrees Abduction 21 Internal Rotation Behind Back (text) R buttocks PT-OP-L Special Tests Start: 09/10/20 17:51 Freq: Status: Active Protocol: Document 09/11/20 15:53 [facility] (Rec: 09/11/20 16:49 [facility] [id number]) Special Tests Shoulder Special Tests Yergason's Biceps Test Results neg R Sulcus Test Results neg R Speed's Biceps Test Results positve R Burns Raffy Impingement Test Results positive R Drop Arm Rotator Cuff Test Results neg R Neer Impingement Test Results positive R [place] Test Test Results neg R AC Joint Compression Test Results neg R PT-OP-M Strength Start: 09/10/20 17:51 Freq: Status: Active Protocol: Document 11/11/20 15:16 [facility] (Rec: 11/11/20 16:05 [facility] [id number]) Shoulder Strength Shoulder Manual Muscle Testing Right Flexion 4+ Good+ Extension 4 Good Abduction (C5) 3+ Fair+ External Rotation 3+ Fair+ Internal Rotation 4- Good- Left Flexion 5 Normal Extension 5 Normal Abduction (C5) 5 Normal External Rotation 5 Normal Internal Rotation 5 Normal PT-OP-Q Treatments Start: 09/10/20 17:51 Freq: Status: Active Protocol: Document 11/11/20 15:16 [facility] (Rec: 11/11/20 16:05 [facility] [id number]) Cardio Equipment Upper Body Ergometer (UBE) Duration (Minutes) 6 Seat Position 11 Height 5 Other 3 min forward/backward Therapeutic Exercises Prone Exercises britta pose Prone Exercise Name fwd & to side ea Reps/Minutes 30sec ea plank Prone Exercise Name forearm & feet Side bilateral Reps/Minutes 30 sec push up Prone Exercise Name on knees Reps/Minutes 10 Standing Exercises tbar Standing Exercise Name 1. flex 2. 90/90 ER 3. abd Side right Reps/Minutes 10 Pec Stretch Standing Exercise Name 1. elbow straight 2. attempted 90/90 position Reps/Minutes 30 sec ER Standing Exercise Name walk out Side right Equipment Used L1 Reps/Minutes 5 Manual Therapy Treatment Soft Tissue Mobilization lats Body Location R lats, teres, infraspinatus Mobilization Type Myofascial Release,Rolling, Strumming Comments in/out of britta pose PT-OP-R Modalities Start: 09/10/20 17:51 Freq: Status: Active Protocol: Document 11/11/20 15:16 [facility] (Rec: 11/11/20 16:05 [facility] [id number]) Electric Stimulation Electric Stimulation Interferential Current (IFC) Body Location R shoulder Duration (Minutes) 15 Contraction Type Normal Patient Position Supine Combined With Heat/Cold Hot Pack PT-OP-T Assessment and Plan Start: 09/10/20 17:51 Freq: Status: Active Protocol: Document 11/11/20 15:16 [facility] (Rec: 11/11/20 16:05 [facility] [id number]) Physical Therapy Assessment Goals activities Short Term Goal (STG) Pt will be able to sleep without inc pain. STG Duration achieved Boarding Specialist Goal (LTG) Pt will be able to return to all weight lifting without inc pain. 11/11-focusing on ROM & doing some plank LTG Duration 01/09/21 strength Short Term Goal (STG) Pt will be indep with HEP STG Duration achieved Boarding Specialist Goal (LTG) Pt will score 5/5 RUE strength and 5/5 EFT to show improved stability and allow him to do typical lifting activities without pain. 11/11-imrovin LTG Duration 01/09/21 ROM Short Term Goal (STG) Pt will have active R flex and abd to 130 deg. 11/11-improving STG Duration 12/12/20 Boarding Specialist Goal (LTG) Pt will have full AROM in all planes for R shoulder to allow him to do all ADLs without inc pain. LTG Duration 01/09/21 Assessment Summary Assessment Pt is improving gradually w/ ROM and is having more comfort with activities and less pain than when starting PT. He had improved strength today but has not seen PT in past month which likely did limit progress some also. Pt would beneift from cont PT. Physical Therapy Plan Frequency and Duration Frequency of Treatment 1-2x/week Duration of Treatment 2 months Plan of Care Start Date 11/11/20 Plan of Care End Date 01/09/21 Therapeutic Interventions Therapeutic Interventions Aquatic Therapy,Home Exercise Program,Joint Mobilizations, Manual Therapy,Neuromuscular Re-education,Patient/Caregiver Education,Self-Care/Home Management,Soft Tissue Mobilization,Taping, Therapeutic Activities, Therapeutic Exercises Modalities Cold Pack/Ice Massage,Electric Stimulation,Hot Packs, Infrared Therapy,Iontophoresis ,Ultrasound Next Visit Focus/Plan Next Note Type Treatment Note Next Visit Plan joint mobs and cont to work on scap stability & mobility
--- NOTE | 2020-11-11 16:06 | PT.OPPOC ---
Physical, Occupational & Speech Therapy At [facility] Current Diagnoses Pain in right shoulder (11/11/20) Stiffness of right shoulder, not elsewhere classified (11/11/20) Abnormal posture (11/11/20) Weakness (11/11/20) Visit Care Team Role Provider Type Terrell Torres PA-C Family Provider Non-Staff Specialty: Medical Address: [address] [place], [address] Email: [email or web address] Capo Fragoso PA-C Attending Provider Non-Staff Primary Care Provider Referring Provider Specialty: Medical Address: [address] [place] [address], [id number] Email: Plan Of Care PT-OP-T Assessment and Plan Start: 09/10/20 17:51 Freq: Status: Active Protocol: Document 11/11/20 15:16 [facility] (Rec: 11/11/20 16:05 [facility] [id number]) Physical Therapy Assessment Goals activities Short Term Goal (STG) Pt will be able to sleep without inc pain. STG Duration achieved Purchasing Engineer Goal (LTG) Pt will be able to return to all weight lifting without inc pain. 11/11-focusing on ROM & doing some plank LTG Duration 01/09/21 strength Short Term Goal (STG) Pt will be indep with HEP STG Duration achieved Detention Goal (LTG) Pt will score 5/5 RUE strength and 5/5 EFT to show improved stability and allow him to do typical lifting activities without pain. 11/11-imrovin LTG Duration 01/09/21 ROM Short Term Goal (STG) Pt will have active R flex and abd to 130 deg. 11/11-improving STG Duration 12/12/20 Purchasing Engineer Goal (LTG) Pt will have full AROM in all planes for R shoulder to allow him to do all ADLs without inc pain. LTG Duration 01/09/21 Assessment Summary Assessment Pt is improving gradually w/ ROM and is having more comfort with activities and less pain than when starting PT. He had improved strength today but has not seen PT in past month which likely did limit progress some also. Pt would beneift from cont PT. Physical Therapy Plan Frequency and Duration Frequency of Treatment 1-2x/week Duration of Treatment 2 months Plan of Care Start Date 11/11/20 Plan of Care End Date 01/09/21 Therapeutic Interventions Therapeutic Interventions Aquatic Therapy,Home Exercise Program,Joint Mobilizations, Manual Therapy,Neuromuscular Re-education,Patient/Caregiver Education,Self-Care/Home Management,Soft Tissue Mobilization,Taping, Therapeutic Activities, Therapeutic Exercises Modalities Cold Pack/Ice Massage,Electric Stimulation,Hot Packs, Infrared Therapy,Iontophoresis ,Ultrasound Next Visit Focus/Plan Next Note Type Treatment Note Next Visit Plan joint mobs and cont to work on scap stability & mobility Plan of Care Dates Plan of Care Start Date 11/11/20 Plan of Care End Date 01/09/21 Electronically Signed by: Martha Parker, PT 11/11/20 [id number] Please Sign and Return: I have reviewed this Plan of Care and certify that the skilled therapy services above are required to meet the patient?s needs. Physician Signature Date Printed Name and Credentials Clinical Instructor Signature Printed Name and Credentials
--- NOTE | 2020-11-13 13:43 | PT.OTN ---
Current Diagnoses Pain in right shoulder (11/13/20) Stiffness of right shoulder, not elsewhere classified (11/13/20) Abnormal posture (11/13/20) Weakness (11/13/20) Physical Therapy Treatment Note PT-OP-A Visit Information Start: 09/10/20 17:51 Freq: Status: Active Protocol: Document 11/13/20 13:02 [facility] (Rec: 11/13/20 13:43 [facility] [id number]) Out-Patient Physical Therapy Visit Information Visit Information Visit Type Treatment Note Visit Start Time 13:00 Visit Stop Time 13:38 Total Visit Minutes 38 Visit Number 10 Number of TRAINING PROGRAM ASSISTANT Visits 0 PT-OP-B Current Condition Start: 09/10/20 17:51 Freq: Status: Active Protocol: Document 09/11/20 15:53 [facility] (Rec: 09/11/20 16:49 [facility] [id number]) Current Condition History of Current Condition Onset Date 2 months ago Current Complaints R shoulder pain History of Current Condition Pt reports he working out and doing kettle villanueva squat lifts and started getting sharp pains after. After break, pain started. Pt notes he has started doing pullys and some stretches he found online including elastic bands but it is not helping. Pt reports he injured his R shoulder when doing self defense training but PT helped 4 years ago. Bumping into someone hurts him . Pt also does ab roller. Notes he did not do much stretching before lifting. Prior Treatments and Tests PT helped in past, estim and heat Treatment Goals Patient/Caregiver Goals get back to weight lifting without pain, be able to sleep on it and not lose sleep PT-OP-C Subjective Start: 09/10/20 17:51 Freq: Status: Active Protocol: Document 11/13/20 13:02 [facility] (Rec: 11/13/20 13:43 [facility] [id number]) OP-PT Subjective Patient Comments Patient Comments Pt reports he was a little sore after last session but stretched that night and doing okay the next day PT-OP-F Manual Assessment Start: 09/10/20 17:51 Freq: Status: Active Protocol: Document 09/11/20 15:53 [facility] (Rec: 09/11/20 16:49 [facility] [id number]) Manual Assessments Soft Tissue Assessment Soft Tissue Mobility Assessment R UT, pec, biceps tightness Joint Mobility Assessment Joint Mobility Assessment R 1st rib elevated PT-OP-J Posture/Palpation/Skin Start: 09/10/20 17:51 Freq: Status: Active Protocol: Document 09/11/20 15:53 [facility] (Rec: 09/11/20 16:49 [facility] [id number]) Posture Evaluation [facility] Postural Classification System [facility] Postural Classifications Posterior/Posterior Elbow Flexion Test 2 Comments Posture Comments humerus ant in GH joint, mild kyphosis & fwd head PT-OP-K Range of Motion Start: 09/10/20 17:51 Freq: Status: Active Protocol: Document 11/11/20 15:16 [facility] (Rec: 11/11/20 16:05 [facility] [id number]) Shoulder Goniometric Range of Motion Shoulder Right Active Testing Position Standing Flexion 120 Extension 33 Abduction 105 External Rotation at 0 degrees Abduction 21 Internal Rotation Behind Back (text) R buttocks PT-OP-L Special Tests Start: 09/10/20 17:51 Freq: Status: Active Protocol: Document 09/11/20 15:53 [facility] (Rec: 09/11/20 16:49 [facility] [id number]) Special Tests Shoulder Special Tests Yergason's Biceps Test Results neg R Sulcus Test Results neg R Speed's Biceps Test Results positve R Burns Raffy Impingement Test Results positive R Drop Arm Rotator Cuff Test Results neg R Neer Impingement Test Results positive R [place] Test Test Results neg R AC Joint Compression Test Results neg R PT-OP-M Strength Start: 09/10/20 17:51 Freq: Status: Active Protocol: Document 11/11/20 15:16 [facility] (Rec: 11/11/20 16:05 [facility] [id number]) Shoulder Strength Shoulder Manual Muscle Testing Right Flexion 4+ Good+ Extension 4 Good Abduction (C5) 3+ Fair+ External Rotation 3+ Fair+ Internal Rotation 4- Good- Left Flexion 5 Normal Extension 5 Normal Abduction (C5) 5 Normal External Rotation 5 Normal Internal Rotation 5 Normal PT-OP-Q Treatments Start: 09/10/20 17:51 Freq: Status: Active Protocol: Document 11/13/20 13:02 [facility] (Rec: 11/13/20 13:43 [facility] [id number]) Cardio Equipment Upper Body Ergometer (UBE) Duration (Minutes) 6 Seat Position 11 Height 6 Other 3 min forward/backward Therapeutic Exercises Prone Exercises ext Prone Exercise Name over tball Side bilateral Equipment Used 2# Reps/Minutes 2x15 scaption Prone Exercise Name over tball Side bilateral Reps/Minutes 2x15 Habd Prone Exercise Name over tball Side bilateral Reps/Minutes 2x15 Manual Therapy Treatment Soft Tissue Mobilization lats Body Location R lats, teres, infraspinatus Mobilization Type Myofascial Release,Rolling, Strumming Comments in/out of britta pose pec Body Location R Mobilization Type Rolling,Strumming Intensity/Depth Moderate Body Position Supine Joint Mobilizations GH Joint R Direction distraction,& post glides Grade III PT-OP-R Modalities Start: 09/10/20 17:51 Freq: Status: Active Protocol: Document 11/11/20 15:16 [facility] (Rec: 11/11/20 16:05 [facility] [id number]) Electric Stimulation Electric Stimulation Interferential Current (IFC) Body Location R shoulder Duration (Minutes) 15 Contraction Type Normal Patient Position Supine Combined With Heat/Cold Hot Pack PT-OP-T Assessment and Plan Start: 09/10/20 17:51 Freq: Status: Active Protocol: Document 11/13/20 13:02 [facility] (Rec: 11/13/20 13:43 [facility] [id number]) Physical Therapy Assessment Goals activities Short Term Goal (STG) Pt will be able to sleep without inc pain. STG Duration achieved Technical Editor Goal (LTG) Pt will be able to return to all weight lifting without inc pain. 11/11-focusing on ROM & doing some plank LTG Duration 01/09/21 strength Short Term Goal (STG) Pt will be indep with HEP STG Duration achieved Senior Care Goal (LTG) Pt will score 5/5 RUE strength and 5/5 EFT to show improved stability and allow him to do typical lifting activities without pain. 11/11-imrovin LTG Duration 01/09/21 ROM Short Term Goal (STG) Pt will have active R flex and abd to 130 deg. 11/11-improving STG Duration 12/12/20 Technical Editor Goal (LTG) Pt will have full AROM in all planes for R shoulder to allow him to do all ADLs without inc pain. LTG Duration 01/09/21 Assessment Summary Assessment Pt was challenged by prone exercises and required cueing for head position throughout. He cont to have most restriction into rotaions likely d/t capsular restrictions Physical Therapy Plan Frequency and Duration Frequency of Treatment 1-2x/week Duration of Treatment 2 months Plan of Care Start Date 11/11/20 Plan of Care End Date 01/09/21 Next Visit Focus/Plan Next Note Type Treatment Note Next Visit Plan joint mobs and cont to work on scap stability & mobility
--- NOTE | 2020-11-18 17:49 | PT.OTN ---
Current Diagnoses Pain in right shoulder (11/18/20) Stiffness of right shoulder, not elsewhere classified (11/18/20) Abnormal posture (11/18/20) Weakness (11/18/20) Physical Therapy Treatment Note PT-OP-A Visit Information Start: 09/10/20 17:51 Freq: Status: Active Protocol: Document 11/18/20 16:15 [facility] (Rec: 11/18/20 17:49 [facility] [id number]) Out-Patient Physical Therapy Visit Information Visit Information Visit Type Treatment Note Visit Start Time 16:09 Visit Stop Time 17:02 Total Visit Minutes 53 Visit Number 11 Number of BATTERBOARD SETTER Visits 0 PT-OP-B Current Condition Start: 09/10/20 17:51 Freq: Status: Active Protocol: Document 09/11/20 15:53 [facility] (Rec: 09/11/20 16:49 [facility] [id number]) Current Condition History of Current Condition Onset Date 2 months ago Current Complaints R shoulder pain History of Current Condition Pt reports he working out and doing kettle villanueva squat lifts and started getting sharp pains after. After break, pain started. Pt notes he has started doing pullys and some stretches he found online including elastic bands but it is not helping. Pt reports he injured his R shoulder when doing self defense training but PT helped 4 years ago. Bumping into someone hurts him . Pt also does ab roller. Notes he did not do much stretching before lifting. Prior Treatments and Tests PT helped in past, estim and heat Treatment Goals Patient/Caregiver Goals get back to weight lifting without pain, be able to sleep on it and not lose sleep PT-OP-C Subjective Start: 09/10/20 17:51 Freq: Status: Active Protocol: Document 11/18/20 16:15 [facility] (Rec: 11/18/20 17:49 [facility] [id number]) OP-PT Subjective Patient Comments Patient Comments Pt reports doing his stretches . PT-OP-F Manual Assessment Start: 09/10/20 17:51 Freq: Status: Active Protocol: Document 09/11/20 15:53 [facility] (Rec: 09/11/20 16:49 [facility] [id number]) Manual Assessments Soft Tissue Assessment Soft Tissue Mobility Assessment R UT, pec, biceps tightness Joint Mobility Assessment Joint Mobility Assessment R 1st rib elevated PT-OP-J Posture/Palpation/Skin Start: 09/10/20 17:51 Freq: Status: Active Protocol: Document 09/11/20 15:53 [facility] (Rec: 09/11/20 16:49 [facility] [id number]) Posture Evaluation [facility] Postural Classification System [facility] Postural Classifications Posterior/Posterior Elbow Flexion Test 2 Comments Posture Comments humerus ant in GH joint, mild kyphosis & fwd head PT-OP-K Range of Motion Start: 09/10/20 17:51 Freq: Status: Active Protocol: Document 11/11/20 15:16 [facility] (Rec: 11/11/20 16:05 [facility] [id number]) Shoulder Goniometric Range of Motion Shoulder Right Active Testing Position Standing Flexion 120 Extension 33 Abduction 105 External Rotation at 0 degrees Abduction 21 Internal Rotation Behind Back (text) R buttocks PT-OP-L Special Tests Start: 09/10/20 17:51 Freq: Status: Active Protocol: Document 09/11/20 15:53 [facility] (Rec: 09/11/20 16:49 [facility] [id number]) Special Tests Shoulder Special Tests Yergason's Biceps Test Results neg R Sulcus Test Results neg R Speed's Biceps Test Results positve R Burns Raffy Impingement Test Results positive R Drop Arm Rotator Cuff Test Results neg R Neer Impingement Test Results positive R Storey Test Test Results neg R AC Joint Compression Test Results neg R PT-OP-M Strength Start: 09/10/20 17:51 Freq: Status: Active Protocol: Document 11/11/20 15:16 [facility] (Rec: 11/11/20 16:05 [facility] [id number]) Shoulder Strength Shoulder Manual Muscle Testing Right Flexion 4+ Good+ Extension 4 Good Abduction (C5) 3+ Fair+ External Rotation 3+ Fair+ Internal Rotation 4- Good- Left Flexion 5 Normal Extension 5 Normal Abduction (C5) 5 Normal External Rotation 5 Normal Internal Rotation 5 Normal PT-OP-Q Treatments Start: 09/10/20 17:51 Freq: Status: Active Protocol: Document 11/18/20 16:15 [facility] (Rec: 11/18/20 17:49 [facility] [id number]) Cardio Equipment Upper Body Ergometer (UBE) Duration (Minutes) 6 Seat Position 11 Height 6 Other 3 min forward/backward Therapeutic Exercises Prone Exercises ext Prone Exercise Name over tball Side bilateral Equipment Used 2# Reps/Minutes 2x15 scaption Prone Exercise Name over tball Side bilateral Reps/Minutes 2x15 Habd Prone Exercise Name over tball Side bilateral Reps/Minutes 2x15 Manual Therapy Treatment Soft Tissue Mobilization pec Body Location R Mobilization Type Rolling,Strumming Intensity/Depth Moderate Body Position Supine Comments w/ER/IR Joint Mobilizations GH Joint R Direction distraction,& post glides Grade III AC Joint R Direction gapping FM PT-OP-R Modalities Start: 09/10/20 17:51 Freq: Status: Active Protocol: Document 11/18/20 16:15 [facility] (Rec: 11/18/20 17:49 [facility] [id number]) Electric Stimulation Electric Stimulation Interferential Current (IFC) Body Location R shoulder Duration (Minutes) 15 Contraction Type Normal Patient Position Supine Combined With Heat/Cold Hot Pack PT-OP-T Assessment and Plan Start: 09/10/20 17:51 Freq: Status: Active Protocol: Document 11/18/20 16:15 [facility] (Rec: 11/18/20 17:49 [facility] [id number]) Physical Therapy Assessment Goals activities Short Term Goal (STG) Pt will be able to sleep without inc pain. STG Duration achieved Paraprofessional Aide Goal (LTG) Pt will be able to return to all weight lifting without inc pain. 11/11-focusing on ROM & doing some plank LTG Duration 01/09/21 strength Short Term Goal (STG) Pt will be indep with HEP STG Duration achieved Paraprofessional Aide Goal (LTG) Pt will score 5/5 RUE strength and 5/5 EFT to show improved stability and allow him to do typical lifting activities without pain. 11/11-imrovin LTG Duration 01/09/21 ROM Short Term Goal (STG) Pt will have active R flex and abd to 130 deg. 11/11-improving STG Duration 12/12/20 Paraprofessional Aide Goal (LTG) Pt will have full AROM in all planes for R shoulder to allow him to do all ADLs without inc pain. LTG Duration 01/09/21 Assessment Summary Assessment Less cueing required over tball to do prone exercises. Able to keep more neutral alignment. He has improved ability to ER in abd positoin w/hands behind head w/manual soft tissue and reports relief w/distraction. Physical Therapy Plan Frequency and Duration Frequency of Treatment 1-2x/week Duration of Treatment 2 months Plan of Care Start Date 11/11/20 Plan of Care End Date 01/09/21 Next Visit Focus/Plan Next Note Type Treatment Note Next Visit Plan joint mobs and cont to work on scap stability & mobility
--- NOTE | 2020-11-27 16:48 | PT.OTN ---
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 After break, pain started. Pt notes he has started doing pullys and some stretches he found online including elastic bands but it is not helping. Pt reports he injured his R shoulder when doing self defense training but PT helped 4 years ago. Bumping into someone hurts him . Pt also does ab roller. Notes he did not do much stretching before lifting. Prior Treatments and Tests PT helped in past, estim and heat Treatment Goals Patient/Caregiver Goals get back to weight lifting without pain, be able to sleep on it and not lose sleep PT-OP-C Subjective Start: 09/10/20 17:51 Freq: Status: Active Protocol: Document 11/27/20 16:47 [facility] (Rec: 11/27/20 16:47 [facility] [id number]) OP-PT Subjective Patient Comments Patient Comments Pt reports he has been doing his stretches at work. PT-OP-F Manual Assessment Start: 09/10/20 17:51 Freq: Status: Active Protocol: Document 09/11/20 15:53 [facility] (Rec: 09/11/20 16:49 [facility] [id number]) Manual Assessments Soft Tissue Assessment Soft Tissue Mobility Assessment R UT, pec, biceps tightness Joint Mobility Assessment Joint Mobility Assessment R 1st rib elevated PT-OP-J Posture/Palpation/Skin Start: 09/10/20 17:51 Freq: Status: Active Protocol: Document 09/11/20 15:53 [facility] (Rec: 09/11/20 16:49 [facility] [id number]) Posture Evaluation [facility] Postural Classification System [facility] Postural Classifications Posterior/Posterior Elbow Flexion Test 2 Comments Posture Comments humerus ant in GH joint, mild kyphosis & fwd head PT-OP-K Range of Motion Start: 09/10/20 17:51 Freq: Status: Active Protocol: Document 11/11/20 15:16 [facility] (Rec: 11/11/20 16:05 [facility] [id number]) Shoulder Goniometric Range of Motion Shoulder Right Active Testing Position Standing Flexion 120 Extension 33 Abduction 105 External Rotation at 0 degrees Abduction 21 Internal Rotation Behind Back (text) R buttocks PT-OP-L Special Tests Start: 09/10/20 17:51 Freq: Status: Active Protocol: Document 09/11/20 15:53 [facility] (Rec: 09/11/20 16:49 [facility] [id number]) Special Tests Shoulder Special Tests Yergason's Biceps Test Results neg R Sulcus Test Results neg R Speed's Biceps Test Results positve R Burns Raffy Impingement Test Results positive R Drop Arm Rotator Cuff Test Results neg R Neer Impingement Test Results positive R [place] Test Test Results neg R AC Joint Compression Test Results neg R PT-OP-M Strength Start: 09/10/20 17:51 Freq: Status: Active Protocol: Document 11/11/20 15:16 [facility] (Rec: 11/11/20 16:05 [facility] [id number]) Shoulder Strength Shoulder Manual Muscle Testing Right Flexion 4+ Good+ Extension 4 Good Abduction (C5) 3+ Fair+ External Rotation 3+ Fair+ Internal Rotation 4- Good- Left Flexion 5 Normal Extension 5 Normal Abduction (C5) 5 Normal External Rotation 5 Normal Internal Rotation 5 Normal PT-OP-Q Treatments Start: 09/10/20 17:51 Freq: Status: Active Protocol: Document 11/27/20 16:47 [facility] (Rec: 11/27/20 16:47 [facility] [id number]) Cardio Equipment Upper Body Ergometer (UBE) Duration (Minutes) 6 Seat Position 11 Height 6 Other 3 min forward/backward Therapeutic Exercises Prone Exercises ext Prone Exercise Name on plinth Side right Equipment Used 3# Reps/Minutes 2x15 scaption Prone Exercise Name on plinth Side right Reps/Minutes 2x15 Habd Prone Exercise Name on plinth Side right Equipment Used 1# Reps/Minutes 2x15 Sidelying Exercises rotation Sidelying Exercise Name sleeper stretch Side right Reps/Minutes 30 sec Standing Exercises Horizontal ABD Standing Exercise Name stretching Habd mm by cross body Hadd stretch Side right Reps/Minutes 30 sec IR Side right Equipment Used L2 Reps/Minutes 15 Comments focus on posture & scap movement Manual Therapy Treatment Soft Tissue Mobilization pec Body Location R Mobilization Type Rolling,Strumming Intensity/Depth Moderate Body Position Supine Comments w/ER/IR Joint Mobilizations scapulothoracic Joint R Direction towards ipsi & contra PSIS Grade IV Body Position Prone GH Joint R Direction distraction,& post glides Grade III Comments w/tbar flex AC Joint R Direction gapping FM PT-OP-R Modalities Start: 09/10/20 17:51 Freq: Status: Active Protocol: Document 11/27/20 16:47 [facility] (Rec: 11/27/20 16:48 [facility] [id number]) Electric Stimulation Electric Stimulation Interferential Current (IFC) Body Location R shoulder Duration (Minutes) 15 Contraction Type Normal Patient Position Supine Combined With Heat/Cold Hot Pack PT-OP-T Assessment and Plan Start: 09/10/20 17:51 Freq: Status: Active Protocol: Document 11/27/20 16:47 [facility] (Rec: 11/27/20 16:47 [facility] [id number]) Physical Therapy Assessment Goals activities Short Term Goal (STG) Pt will be able to sleep without inc pain. STG Duration achieved Supervisor Assembly Department Goal (LTG) Pt will be able to return to all weight lifting without inc pain. 11/11-focusing on ROM & doing some plank LTG Duration 01/09/21 strength Short Term Goal (STG) Pt will be indep with HEP STG Duration achieved Supervisor Assembly Department Goal (LTG) Pt will score 5/5 RUE strength and 5/5 EFT to show improved stability and allow him to do typical lifting activities without pain. 11/11-imrovin LTG Duration 01/09/21 ROM Short Term Goal (STG) Pt will have active R flex and abd to 130 deg. 11/11-improving STG Duration 12/12/20 Usp Goal (LTG) Pt will have full AROM in all planes for R shoulder to allow him to do all ADLs without inc pain. LTG Duration 01/09/21 Assessment Summary Assessment Pt able to inc wt without inc pain w/prone exercises and demonstrated better scap movement w/less scap elevaiton duirng exercises. Pt able to improve to 126 after manual treatment. Physical Therapy Plan Frequency and Duration Frequency of Treatment 1-2x/week Duration of Treatment 2 months Plan of Care Start Date 11/11/20 Plan of Care End Date 01/09/21 Next Visit Focus/Plan Next Note Type Treatment Note Next Visit Plan joint mobs and cont to work on scap stability & mobility
--- NOTE | 2020-12-02 16:56 | PT.OTN ---
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 After break, pain started. Pt notes he has started doing pullys and some stretches he found online including elastic bands but it is not helping. Pt reports he injured his R shoulder when doing self defense training but PT helped 4 years ago. Bumping into someone hurts him . Pt also does ab roller. Notes he did not do much stretching before lifting. Prior Treatments and Tests PT helped in past, estim and heat Treatment Goals Patient/Caregiver Goals get back to weight lifting without pain, be able to sleep on it and not lose sleep PT-OP-C Subjective Start: 09/10/20 17:51 Freq: Status: Active Protocol: Document 12/02/20 16:09 [facility] (Rec: 12/02/20 16:56 [facility] [id number]) OP-PT Subjective Patient Comments Patient Comments Pt did well after last session . PT-OP-F Manual Assessment Start: 09/10/20 17:51 Freq: Status: Active Protocol: Document 09/11/20 15:53 [facility] (Rec: 09/11/20 16:49 [facility] [id number]) Manual Assessments Soft Tissue Assessment Soft Tissue Mobility Assessment R UT, pec, biceps tightness Joint Mobility Assessment Joint Mobility Assessment R 1st rib elevated PT-OP-J Posture/Palpation/Skin Start: 09/10/20 17:51 Freq: Status: Active Protocol: Document 09/11/20 15:53 [facility] (Rec: 09/11/20 16:49 [facility] [id number]) Posture Evaluation [facility] Postural Classification System [facility] Postural Classifications Posterior/Posterior Elbow Flexion Test 2 Comments Posture Comments humerus ant in GH joint, mild kyphosis & fwd head PT-OP-K Range of Motion Start: 09/10/20 17:51 Freq: Status: Active Protocol: Document 11/11/20 15:16 [facility] (Rec: 11/11/20 16:05 [facility] [id number]) Shoulder Goniometric Range of Motion Shoulder Right Active Testing Position Standing Flexion 120 Extension 33 Abduction 105 External Rotation at 0 degrees Abduction 21 Internal Rotation Behind Back (text) R buttocks PT-OP-L Special Tests Start: 09/10/20 17:51 Freq: Status: Active Protocol: Document 09/11/20 15:53 [facility] (Rec: 09/11/20 16:49 [facility] [id number]) Special Tests Shoulder Special Tests Yergason's Biceps Test Results neg R Sulcus Test Results neg R Speed's Biceps Test Results positve R Burns Raffy Impingement Test Results positive R Drop Arm Rotator Cuff Test Results neg R Neer Impingement Test Results positive R [place] Test Test Results neg R AC Joint Compression Test Results neg R PT-OP-M Strength Start: 09/10/20 17:51 Freq: Status: Active Protocol: Document 11/11/20 15:16 [facility] (Rec: 11/11/20 16:05 [facility] [id number]) Shoulder Strength Shoulder Manual Muscle Testing Right Flexion 4+ Good+ Extension 4 Good Abduction (C5) 3+ Fair+ External Rotation 3+ Fair+ Internal Rotation 4- Good- Left Flexion 5 Normal Extension 5 Normal Abduction (C5) 5 Normal External Rotation 5 Normal Internal Rotation 5 Normal PT-OP-Q Treatments Start: 09/10/20 17:51 Freq: Status: Active Protocol: Document 12/02/20 16:09 [facility] (Rec: 12/02/20 16:56 [facility] [id number]) Cardio Equipment Upper Body Ergometer (UBE) Duration (Minutes) 6 Seat Position 11 Height 6 Other 3 min forward/backward Therapeutic Exercises Prone Exercises ext Prone Exercise Name on plint Side right Reps/Minutes 10 Comments ext>abd to 90 then back Standing Exercises Pec Stretch Standing Exercise Name doorway ER 90/90 Side right Reps/Minutes 1 min Horizontal ABD Standing Exercise Name stretching Habd mm by cross body Hadd stretch Side right Reps/Minutes 1 min IR Standing Exercise Name towel stretch-behind back Side right Reps/Minutes 1 min Manual Therapy Treatment Soft Tissue Mobilization UT Body Location R UT, LS, scalenes Mobilization Type Rolling,Sustained Pressure Comments w/post dep Joint Mobilizations ribs Joint 1st rib Direction caudal FM GH Joint R Direction distraction,& post glides & inf glides Grade III AC Joint R Direction gapping FM PT-OP-R Modalities Start: 09/10/20 17:51 Freq: Status: Active Protocol: Document 12/02/20 16:09 [facility] (Rec: 12/02/20 16:56 [facility] [id number]) Electric Stimulation Electric Stimulation Interferential Current (IFC) Body Location R shoulder Duration (Minutes) 15 Contraction Type Normal Patient Position Supine Combined With Heat/Cold Hot Pack PT-OP-T Assessment and Plan Start: 09/10/20 17:51 Freq: Status: Active Protocol: Document 12/02/20 16:09 [facility] (Rec: 12/02/20 16:56 [facility] [id number]) Physical Therapy Assessment Goals activities Short Term Goal (STG) Pt will be able to sleep without inc pain. STG Duration achieved Alf Goal (LTG) Pt will be able to return to all weight lifting without inc pain. 11/11-focusing on ROM & doing some plank LTG Duration 01/09/21 strength Short Term Goal (STG) Pt will be indep with HEP STG Duration achieved Needle Punch Machine Operator Helper Goal (LTG) Pt will score 5/5 RUE strength and 5/5 EFT to show improved stability and allow him to do typical lifting activities without pain. 11/11-imrovin LTG Duration 01/09/21 ROM Short Term Goal (STG) Pt will have active R flex and abd to 130 deg. 11/11-improving STG Duration 12/12/20 Needle Punch Machine Operator Helper Goal (LTG) Pt will have full AROM in all planes for R shoulder to allow him to do all ADLs without inc pain. LTG Duration 01/09/21 Assessment Summary Assessment Pt did well exercises & manual today. he showed imporved ability to get into 90/90 ER. Physical Therapy Plan Frequency and Duration Frequency of Treatment 1-2x/week Duration of Treatment 2 months Plan of Care Start Date 11/11/20 Plan of Care End Date 01/09/21 Next Visit Focus/Plan Next Note Type Treatment Note Next Visit Plan joint mobs and cont to work on scap stability & mobility, review exercises for possible dc to home program
--- NOTE | 2020-12-04 16:46 | PT.OTN ---
Current Diagnoses Pain in right shoulder (12/04/20) Stiffness of right shoulder, not elsewhere classified (12/04/20) Abnormal posture (12/04/20) Weakness (12/04/20) Physical Therapy Treatment Note PT-OP-A Visit Information Start: 09/10/20 17:51 Freq: Status: Active Protocol: Document 12/04/20 16:08 [facility] (Rec: 12/04/20 16:46 [facility] [id number]) Out-Patient Physical Therapy Visit Information Visit Information Visit Type Discharge Summary Visit Start Time 16:05 Visit Stop Time 16:43 Total Visit Minutes 38 Visit Number 14 Number of ORNAMENTAL PAINTER Visits 0 PT-OP-B Current Condition Start: 09/10/20 17:51 Freq: Status: Active Protocol: Document 09/11/20 15:53 [facility] (Rec: 09/11/20 16:49 [facility] [id number]) Current Condition History of Current Condition Onset Date 2 months ago Current Complaints R shoulder pain History of Current Condition Pt reports he working out and doing kettle villanueva squat lifts and started getting sharp pains after. After break, pain started. Pt notes he has started doing pullys and some stretches he found online including elastic bands but it is not helping. Pt reports he injured his R shoulder when doing self defense training but PT helped 4 years ago. Bumping into someone hurts him . Pt also does ab roller. Notes he did not do much stretching before lifting. Prior Treatments and Tests PT helped in past, estim and heat Treatment Goals Patient/Caregiver Goals get back to weight lifting without pain, be able to sleep on it and not lose sleep PT-OP-C Subjective Start: 09/10/20 17:51 Freq: Status: Active Protocol: Document 12/04/20 16:08 [facility] (Rec: 12/04/20 16:46 [facility] [id number]) OP-PT Subjective Patient Comments Patient Comments Pt ready for dc. feels like was able to get further with pulleys Patient Reported Progress Improving PT-OP-F Manual Assessment Start: 09/10/20 17:51 Freq: Status: Active Protocol: Document 09/11/20 15:53 [facility] (Rec: 09/11/20 16:49 [facility] [id number]) Manual Assessments Soft Tissue Assessment Soft Tissue Mobility Assessment R UT, pec, biceps tightness Joint Mobility Assessment Joint Mobility Assessment R 1st rib elevated PT-OP-J Posture/Palpation/Skin Start: 09/10/20 17:51 Freq: Status: Active Protocol: Document 12/04/20 16:08 [facility] (Rec: 12/04/20 16:46 [facility] [id number]) Posture Evaluation [facility] Postural Classification System Elbow Flexion Test 2 PT-OP-K Range of Motion Start: 09/10/20 17:51 Freq: Status: Active Protocol: Document 12/04/20 16:08 [facility] (Rec: 12/04/20 16:46 [facility] [id number]) Shoulder Goniometric Range of Motion Shoulder Right Active Testing Position Standing Flexion 131 Extension 38 Abduction 120 External Rotation at 0 degrees Abduction 25 Internal Rotation Behind Back (text) P PSIS PT-OP-L Special Tests Start: 09/10/20 17:51 Freq: Status: Active Protocol: Document 09/11/20 15:53 [facility] (Rec: 09/11/20 16:49 [facility] [id number]) Special Tests Shoulder Special Tests Yergason's Biceps Test Results neg R Sulcus Test Results neg R Speed's Biceps Test Results positve R Burns Raffy Impingement Test Results positive R Drop Arm Rotator Cuff Test Results neg R Neer Impingement Test Results positive R Owsley Test Test Results neg R AC Joint Compression Test Results neg R PT-OP-M Strength Start: 09/10/20 17:51 Freq: Status: Active Protocol: Document 12/04/20 16:08 [facility] (Rec: 12/04/20 16:46 [facility] [id number]) Shoulder Strength Shoulder Manual Muscle Testing Right Flexion 4+ Good+ Extension 4+ Good+ Abduction (C5) 4+ Good+ External Rotation 3+ Fair+ Internal Rotation 5 Normal Left Flexion 5 Normal Extension 5 Normal Abduction (C5) 5 Normal External Rotation 5 Normal Internal Rotation 5 Normal PT-OP-Q Treatments Start: 09/10/20 17:51 Freq: Status: Active Protocol: Document 12/04/20 16:08 [facility] (Rec: 12/04/20 16:46 [facility] [id number]) Therapeutic Exercises Sidelying Exercises rotation Sidelying Exercise Name sleeper stretch Side right Reps/Minutes 30 sec Standing Exercises flex Standing Exercise Name flex and abd focus on scap motion Side right Equipment Used 2lb Reps/Minutes 10 tbar Standing Exercise Name flex and abd Side right Reps/Minutes 6 ea Pec Stretch Standing Exercise Name ER stretch Side right Reps/Minutes 30 sec Horizontal ABD Standing Exercise Name stretching Habd mm by cross body Hadd stretch Side right Reps/Minutes 1 min ext Standing Exercise Name tbar AAROM Side right Reps/Minutes 10 IR Side right Equipment Used L3 Reps/Minutes 10 Manual Therapy Treatment Soft Tissue Mobilization pec Body Location R Mobilization Type Rolling,Strumming Intensity/Depth Moderate Body Position Supine Comments w/ER/IR Joint Mobilizations GH Joint R Direction distraction,& post glides & inf glides Grade III AC Joint R Direction gapping FM Self-Care/Home Management Treatment Education Other Education review of HEP and exercises to cont at home PT-OP-R Modalities Start: 09/10/20 17:51 Freq: Status: Active Protocol: Document 12/02/20 16:09 [facility] (Rec: 12/02/20 16:56 [facility] [id number]) Electric Stimulation Electric Stimulation Interferential Current (IFC) Body Location R shoulder Duration (Minutes) 15 Contraction Type Normal Patient Position Supine Combined With Heat/Cold Hot Pack PT-OP-T Assessment and Plan Start: 09/10/20 17:51 Freq: Status: Active Protocol: Document 12/04/20 16:08 [facility] (Rec: 12/04/20 16:46 [facility] [id number]) Physical Therapy Assessment Goals activities Short Term Goal (STG) Pt will be able to sleep without inc pain. STG Duration achieved Care Home Goal (LTG) Pt will be able to return to all weight lifting without inc pain. 11/11-focusing on ROM & doing some plank LTG Duration pt has been able to do some light lifting along w/plank & push up strength Short Term Goal (STG) Pt will be indep with HEP STG Duration achieved Care Home Goal (LTG) Pt will score 5/5 RUE strength and 5/5 EFT to show improved stability and allow him to do typical lifting activities without pain. 11/11-imrovin LTG Duration improved ROM Short Term Goal (STG) Pt will have active R flex and abd to 130 deg. 11/11-improving STG Duration achieved in flex, improved abd Care Home Goal (LTG) Pt will have full AROM in all planes for R shoulder to allow him to do all ADLs without inc pain. LTG Duration improved, no pain with daily activities but not full range Assessment Summary Assessment Pt is DC from PT today d/t pt request. He has made progress with strength and ROM but is still limted. He plans to cont with his HEP at home to cont to make progress. Slow progress has been made d/t pt having signs and symptosm of adhesive capsulitis which has a long recovery time. He was educated on HEP and sent to cont at home. Physical Therapy Plan Discharge Physical Therapy Discharge Reasons Patient Request
== END 2020-12-09 14:57 ==
LOC: PHYS 16:00
PROVIDERS: Family Provider Physician Assistant; PCP Physician Assistant; Referring Provider Physician Assistant; Visit Provider Physician Assistant
DX: M25.511 Pain in right shoulder (principal); R53.1 Weakness; R29.3 Abnormal posture; M25.611 Stiffness of right shoulder, not elsewhere classified
CPT/HCPCS: 97014; 97110; 97140; 97161; 97530; G0283